=== PATIENT | male | born 1985 | race Caucasian/White ===

== ENCOUNTER → 2021-05-05 14:21 | Outpatient (BNVA) | payer BC, SELFPAY | PROVIDERS: PCP Nurse Practitioner Family; Referring Provider Nurse Practitioner Family; Visit Provider Surgery | DX: L02.01 Cutaneous abscess of face (principal); Z91.013 Allergy to seafood ==

== ENCOUNTER 2021-08-13 09:46 | Outpatient (REF) | payer BC, SELFPAY | END 2021-08-13 09:47 | disposition home or self-care (01) | LOC: HO.LNP 09:46 | PROVIDERS: PCP Nurse Practitioner Family; Referring Provider Nurse Practitioner Family; Visit Provider Surgery | DX: L02.01 Cutaneous abscess of face (principal) | CPT/HCPCS: 10060; 87071; 87077; 87186; 87205 ==

== ENCOUNTER → 2021-08-19 10:26 | Outpatient (BNVA) | payer BC, SELFPAY | PROVIDERS: PCP Nurse Practitioner Family; Referring Provider Nurse Practitioner Family; Visit Provider Surgery | DX: L02.01 Cutaneous abscess of face (principal) ==

== ENCOUNTER → 2021-10-13 12:58 | Outpatient (BNVA) | payer BC, SELFPAY | PROVIDERS: PCP Nurse Practitioner Family; Referring Provider Nurse Practitioner Family; Visit Provider Surgery ==

== ENCOUNTER 2021-11-19 06:23 | Outpatient (REF) | payer BC, SELFPAY ==
[2021-11-19 11:30] LABS: Appearance Urine CLEAR; Color Urine YELLOW; Glucose Urine UA NEG (NEG); Leukocyte Esterase Urine NEG (NEG); Nitrite Urine NEG (NEG); Urine Blood NEG (NEG); Urine Ketones NEG (NEG); Urine Protein NEG (NEG-TRACE)
[2021-11-19 11:43] LABS: Alanine Aminotransferase 75 U/L (0-40); Albumin Level 4.5 g/dL (3.5-5.0); Alkaline Phosphatase 48 U/L (39-117); Anion Gap 11 (12-20); Aspartate Amino Transferase 30 U/L (5-37); Bilirubin Total 0.8 mg/dL (0.0-1.0); Blood Urea Nitrogen 14 mg/dL (9-16); Calcium 9.8 mg/dL (8.4-10.2); Carbon Dioxide 27 mmol/L (22-29); Chloride 106 mmol/L (96-108); Cholesterol 246 mg/dL; Estimated Glomerular Filt Rate > 60; Glucose Fasting 99 mg/dL (60-99); HDL Cholesterol 34 mg/dL; LDL Cholesterol Calculated 174 mg/dl; Potassium 4.2 mmol/L (3.3-5.1); Sodium 140 mmol/L (135-145); Triglycerides 194 mg/dL
== END 2021-11-19 06:24 | disposition home or self-care (01) ==
LOC: HO.HMGCLDS 06:23
PROVIDERS: Visit Provider Nurse Practitioner Family
DX: Z00.00 Encounter for general adult medical examination without abnormal findings (principal)
CPT/HCPCS: 36415; 80053; 80061; 81003; 84443

== ENCOUNTER 2021-12-24 08:43 | Outpatient (REF) | payer BC, SELFPAY ==
--- NOTE | ~2021-12-24 | US_ITS ---
EXAMINATION: US ABDOMEN COMPLETE CLINICAL INFORMATION: Elevated liver enzymes. COMPARISON: None TECHNIQUE: Real-time imaging of the abdominal viscera. FINDINGS: PANCREAS: Normal. ABDOMINAL AORTA: The proximal, mid, and distal segments are normal in caliber. INFERIOR VENA CAVA: Visualized portions are normal. LIVER: There is a coarse inhomogeneous increased echogenicity throughout the liver consistent with primary hepatocellular disease. There are geographic areas of decreased density in the classic location near the gallbladder suggesting focal fatty sparing. The largest area is seen adjacent to the gallbladder. However, there is another area in the left lobe which measures 1.2 x 0.8 x 1.2 cm. This is not classic and a mass cannot be completely excluded in this area the liver. The liver contour is normal. There is no intrahepatic biliary duct dilatation seen. GALLBLADDER: Normal. The gallbladder is physiologically distended without evidence of stones, sludge, polyps, wall thickening or pericholecystic fluid. COMMON BILE DUCT: Normal in caliber measuring 0.6 cm in diameter. RIGHT KIDNEY: Normal. No hydronephrosis. No renal calculi or focal parenchymal lesions. The kidney measures 13.6 cm in maximum dimension. LEFT KIDNEY: There is mild dilatation of the infundibula and the renal pelvis which may represent mild hydronephrosis. No renal calculi or focal parenchymal lesions. The kidney measures 11.8 cm in maximum dimension. SPLEEN: Normal. The spleen measures 11.5 cm in maximum dimension. FREE FLUID: None. US/US abdomen complete IMPRESSION: 1. There is primary hepatocellular disease which may be due to hepatic steatosis. In addition, there are areas within superior classic for focal fatty sparing. However, there is one area in the left lobe of liver which does not appear classic and measures 1.2 x 0.8 x 1.2 cm. A mass cannot be completely excluded. Therefore, an MRI of the liver is recommended to exclude a liver mass. 2. There is mild left renal pelvic caliectasis. This could represent mild hydronephrosis of uncertain etiology. No stones are seen. Clinical correlation is recommended.
[2021-12-24 12:19] LABS: HBS Num1 3.28 mIU/mL (0-7.99); HBc Num1 0.07 S/CO (0.00-0.79); Hepatitis A Antibody IgM 0.15 Index (0-0.79); Hepatitis B Core Antibody Nonreactive (Nonreactive); ~HepC Num1 0.08 S/CO (0.00-0.79); ~Hepatitis A Antibody IgM Nonreactive (Nonreactive); ~Hepatitis B Surface Antibody NONREACTIVE (Nonreactive); ~Hepatitis C Antibody Nonreactive (Nonreactive)
[2021-12-24 12:26] LABS: Cholesterol 222 mg/dL; HDL Cholesterol 38 mg/dL; LDL Cholesterol Calculated 148 mg/dl; Triglycerides 184 mg/dL
[2021-12-24 12:31] LABS: Hepatitis B Surface Antigen Negative (Negative)
== END 2021-12-24 08:44 | disposition home or self-care (01) ==
LOC: HO.HMGCX 08:43
PROVIDERS: Visit Provider Nurse Practitioner Family
DX: R74.8 Abnormal levels of other serum enzymes (principal); E78.5 Hyperlipidemia, unspecified
CPT/HCPCS: 36415; 76700; 80061; 86704; 86706; 86709; 86803; 87340

== ENCOUNTER 2022-01-24 06:40 | Outpatient (REF) | payer BC, SELFPAY ==
[2022-01-24 11:38] LABS: Alanine Aminotransferase 41 U/L (0-40); Albumin Level 4.4 g/dL (3.5-5.0); Alkaline Phosphatase 43 U/L (39-117); Anion Gap 12 (12-20); Aspartate Amino Transferase 19 U/L (5-37); Bilirubin Total 0.7 mg/dL (0.0-1.0); Blood Urea Nitrogen 11 mg/dL (9-16); Calcium 9.6 mg/dL (8.4-10.2); Carbon Dioxide 24 mmol/L (22-29); Chloride 108 mmol/L (96-108); Cholesterol 218 mg/dL; Estimated Glomerular Filt Rate > 60; Glucose Fasting 94 mg/dL (60-99); HDL Cholesterol 36 mg/dL; LDL Cholesterol Calculated 156 mg/dl; Potassium 4.4 mmol/L (3.3-5.1); Sodium 140 mmol/L (135-145); Total Protein 6.6 g/dL (6.5-8.0); Triglycerides 132 mg/dL
== END 2022-01-24 06:41 | disposition home or self-care (01) ==
LOC: HO.HMGCLDS 06:40
PROVIDERS: Visit Provider Nurse Practitioner Family
DX: E78.5 Hyperlipidemia, unspecified (principal); I10 Essential (primary) hypertension
CPT/HCPCS: 36415; 80053; 80061

== ENCOUNTER 2022-01-26 13:14 | Outpatient (REF) | payer BC, SELFPAY ==
--- NOTE | ~2022-01-26 | MR_ITS ---
EXAMINATION: MR ABDOMEN WITHOUT AND WITH CONTRAST CLINICAL INFORMATION: Liver disease COMPARISON: Previous abdominal ultrasound December 2021 TECHNIQUE: MR abdomen was performed without and with use of 10 mL intravenous Gadavist gadolinium contrast. Postcontrast images are performed in multiphase dynamic sequences. Imaging was performed in 3 planes. FINDINGS: LUNG BASES: The visualized lung bases are unremarkable. LIVER, GALLBLADDER, AND BILIARY TREE: The liver is normal in size and contour. There is signal loss in the liver on out of phase sequences suggestive of fatty infiltration. No focal hepatic lesion or biliary ductal dilatation is present. The gallbladder is unremarkable with no evidence of gallbladder wall thickening, or obvious pericholecystic inflammatory changes. PANCREAS: Unremarkable. SPLEEN: Normal. ADRENAL GLANDS: Normal. KIDNEYS AND URETERS: The kidneys are normal in size, shape, and enhance symmetrically. No hydronephrosis. No perinephric stranding. GASTROINTESTINAL TRACT: No bowel obstruction. No ascites or fluid collection. ABDOMINAL WALL: No significant hernia is appreciated. LYMPH NODES: No lymphadenopathy. VASCULAR: Unremarkable. OSSEOUS STRUCTURES: Marrow signal normal. There is degenerative disc disease at L4-L5. MR/MR abdomen wo/w con IMPRESSION: Fatty infiltration of the liver. No focal liver lesion seen.
== END 2022-01-26 13:15 | disposition home or self-care (01) ==
LOC: HO.MRI 13:14
PROVIDERS: Visit Provider Nurse Practitioner Family
DX: K76.9 Liver disease, unspecified (principal)
CPT/HCPCS: 74183; A9585

== ENCOUNTER → 2022-03-18 13:30 | Outpatient (BNVA) | payer BC, SELFPAY | PROVIDERS: PCP Nurse Practitioner Family; Visit Provider Urology | DX: Z13.89 Encounter for screening for other disorder (principal) ==

== ENCOUNTER → 2022-04-11 12:39 | Outpatient (BNVA) | payer SELFPAY | PROVIDERS: PCP Nurse Practitioner Family; Visit Provider Physician Assistant Medical | DX: Z02.79 Encounter for issue of other medical certificate (principal) ==

== ENCOUNTER 2022-05-06 08:06 | Outpatient (REF) | payer BC, SELFPAY ==
[2022-05-06 08:33] LABS: COVID-19 Test Positive (Negative); IDNOW Serial# 16C4AD1C
== END 2022-05-06 08:07 | disposition home or self-care (01) ==
LOC: HO.LAB 08:06
PROVIDERS: Visit Provider Internal Medicine
DX: Z20.822 Contact with and (suspected) exposure to COVID-19 (principal)
CPT/HCPCS: 87635; C9803

== ENCOUNTER 2022-06-15 06:44 | Outpatient (REF) | payer BC, SELFPAY ==
[2022-06-15 11:32] LABS: Cholesterol 145 mg/dL; HDL Cholesterol 43 mg/dL; LDL Cholesterol Calculated 84 mg/dl; Triglycerides 92 mg/dL
== END 2022-06-15 06:45 | disposition home or self-care (01) ==
LOC: HO.HMGCLDS 06:44
PROVIDERS: PCP Nurse Practitioner Family; Visit Provider Nurse Practitioner Family
DX: E78.5 Hyperlipidemia, unspecified (principal)
CPT/HCPCS: 36415; 80061

== ENCOUNTER 2022-12-23 08:18 | Outpatient (REF) | payer BC, SELFPAY | END 2022-12-23 08:19 | disposition home or self-care (01) | LOC: HO.LNP 08:18 | PROVIDERS: PCP Nurse Practitioner Family; Visit Provider Surgery | DX: L02.01 Cutaneous abscess of face (principal); Z79.899 Other long term (current) drug therapy | CPT/HCPCS: 10060; 87070; 87077; 87186; 87205 ==

== ENCOUNTER → 2023-01-03 09:20 | Outpatient (BNVA) | payer BC, SELFPAY | PROVIDERS: PCP Nurse Practitioner Family; Visit Provider Surgery | DX: Z13.89 Encounter for screening for other disorder (principal) ==

== ENCOUNTER 2023-02-01 15:33 | Outpatient (REF) | payer BC, SELFPAY | END 2023-02-01 15:34 | disposition home or self-care (01) | LOC: HO.LAB 15:33 | PROVIDERS: Visit Provider Nurse Practitioner Family | DX: Z13.89 Encounter for screening for other disorder (principal) ==

== ENCOUNTER 2023-02-01 15:54 | Outpatient (REF) | payer BC, SELFPAY ==
[2023-02-01 16:18] LABS: MANUAL DIFF FLAG NO
[2023-02-01 16:32] LABS: Basophils Absolute Auto 0.1 X10*3/uL (0.0-0.2); Basophils Percent Auto 1.1 % (0-2); Eosinophils Absolute Auto 0.1 X10*3/uL (0.0-0.4); Eosinophils Percent Auto 1.3 % (0-4); Hematocrit 46.7 % (42.0-52.0); Hemoglobin 16.4 g/dl (14.0-18.0); Imm Gran Abs Auto 0.01 X10*3/uL (0.00-0.03); Imm Gran Pct Auto 0.2 % (0.0-0.4); Lymphocytes Absolute Auto 2.6 X10*3/uL (1.2-4.9); Lymphocytes Percent Auto 48.3 % (20-40); Mean Corpuscular HGB Conc 35.1 g/dl (31.0-36.0); Mean Corpuscular Hemoglobin 31.1 pg (27.0-33.0); Mean Corpuscular Volume 88.6 fL (80.0-98.0); Mean Platelet Volume 9.4 fL (9.4-12.4); Monocytes Absolute Auto 0.6 X10*3/uL (0.1-1.2); Monocytes Percent Auto 10.1 % (2-11); Neutrophils Absolute Auto 2.1 x10*3/uL (2.0-8.3); Platelet Count 252 X10*3/uL (160-400); Red Blood Count 5.27 X10*6/uL (4.60-5.80); Red Cell Distribution Width 12.7 % (11.0-16.0); White Blood Count 5.4 X10*3/uL (4.8-10.8)
[2023-02-01 16:51] LABS: Anion Gap 12 (12-20); Blood Urea Nitrogen 13 mg/dL (9-16); Calcium 9.9 mg/dL (8.4-10.2); Carbon Dioxide 28 mmol/L (22-29); Chloride 109 mmol/L (96-108); Estimated Glomerular Filt Rate > 60; Glucose Random 99 mg/dL (60-115); Potassium 4.6 mmol/L (3.3-5.1); Sodium 144 mmol/L (135-145)
[2023-02-01 16:58] LABS: Influenza A PCR NEGATIVE (Negative); Influenza B PCR NEGATIVE (Negative); Resp Syncy Virus RNA Qual PCR NEGATIVE (Negative); SARS COV2 PCR INHOUSE NEGATIVE (Negative)
== END 2023-02-01 15:55 | disposition home or self-care (01) ==
LOC: HO.LAB 15:54
PROVIDERS: PCP Nurse Practitioner Family; Visit Provider Nurse Practitioner Family
DX: Z20.822 Contact with and (suspected) exposure to COVID-19 (principal); R09.89 Other specified symptoms and signs involving the circulatory and respiratory systems; R42 Dizziness and giddiness
CPT/HCPCS: 0241U; 80048; 85025

== ENCOUNTER 2023-05-01 08:08 | Outpatient (AMB) | payer BC, SELFPAY ==
--- NOTE | 2023-05-01 08:46 | AM.OFFWIN_ITS ---
Intake Vital Signs 05/01/23 08:47 Height 5 ft 8 in BP 130/80 Blood Pressure Location Lt brachial Position Sitting Pulse 104 H Pulse Source Pulse Oximeter Temp 98.2 F Temp Source Oral Pulse Oximetry (%) 99 Oxygen Delivery Method Room Air Intake Visit Reasons: EP cough/congestion [phone] Intake Note: pt is here for cough and congestion 2x weeks Patient Tobacco Use Status: Never used Tobacco Allergies shellfish Allergy (Unknown, Uncoded 05/01/23 09:18) hives Medication List - Last Reconciled 05/01/23 by Adams Penn MD atorvastatin 10 mg PO BEDTIME 30 days chlorhexidine gluconate 4% (Hibiclens) 1 appl topical 2-3 times weekly.; Lather face and keep on skin 1-2 minutes before washing off. 2 weeks losartan 25 mg PO DAILY Do you need a note to return to daycare/school/sports/work: Yes HPI EP cough/congestion [phone] HPI Details Patient presents for a sick visit. Reporting symptoms of sinus congestion, sore throat and difficulty swallowing. Low-grade fever. No family member is sick. No recent travel. Patient reports symptoms of malaise and fatigue. [facility]LY [facility], [facility] Medical History Thrombosed external hemorrhoids Surgical History History of incision and drainage (12/23/22) Family History Paternal Grandmother Bladder cancer Social History Housing: House Alcohol intake: current Patient Tobacco Use Status: Never used Tobacco e-Cigarette/Vaping Use: Never Used Second Hand Smoke Exposure: No service: No Current occupational status: employed Current occupation: [employer] Current occupational exposures/hazards: Yes Cognitive needs: No Hearing needs: No Vision needs: No Physical Exam Vital Signs: Last Vital Signs Temp 98.2 F 05/01/23 08:47 Pulse 104 H 05/01/23 08:47 BP 130/80 05/01/23 08:47 Pulse Ox 99 05/01/23 08:47 Oxygen Delivery Method Room Air 05/01/23 08:47 Const General: cooperative and healthy appearing Nutritional Appearance: well nourished Orientation/consciousness: patient oriented x3 Limitations: no limitations HEENT Head: Yes normal to inspection Eyes General: appearance normal, both eyes and all related structures Neck Neck: Yes normal visual inspection Chest Chest palpation & inspection: normal palpation of entire chest wall Resp Effort & Inspection: normal respiratory effort Neuro General: patient oriented x3 Results AMB Rapid Strep AMB Rapid Strep Negative Last Edit by Jos Olivarez CMA on 05/01/23 09 :03 Results Reviewed Results Reviewed: Laboratory Last Values Strep Scn [facility] Negative 05/01/23 08:56 Assessment & Plan Assessment & Plan (1) Acute bronchitis: Code(s): J20.9 - Acute bronchitis, unspecified Plan: Antibiotics ordered. Increase fluid intake. Tylenol for aches and pains. If symptoms worsen, follow-up here for a recheck. Orders: Orders AMB Rapid Strep Screen Today Z13.9 - Encounter for screening, unspecified Coding Level of Care Code Est Pt Level 3 (96743) Diagnoses Acute bronchitis J20.9
[2023-05-01 08:47] VITALS: BP 130/80; PULSE 104; TEMP 36.8; O2SAT 99
== END 2023-05-01 09:31 | disposition home or self-care (01) ==
PROVIDERS: PCP Nurse Practitioner Family; Visit Provider Internal Medicine
DX: J20.9 Acute bronchitis, unspecified (principal); Z13.9 Encounter for screening, unspecified
CPT/HCPCS: 87880; 99213

== ENCOUNTER 2023-06-23 06:25 | Outpatient (REF) | payer BC, SELFPAY ==
[2023-06-23 11:11] LABS: MANUAL DIFF FLAG NO
[2023-06-23 11:31] LABS: Basophils Absolute Auto 0.1 X10*3/uL (0.0-0.2); Basophils Percent Auto 1.1 % (0-2); Eosinophils Absolute Auto 0.2 X10*3/uL (0.0-0.4); Hemoglobin 16.8 g/dl (14.0-18.0); Imm Gran Abs Auto 0.01 X10*3/uL (0.00-0.03); Imm Gran Pct Auto 0.2 % (0.0-0.4); Lymphocytes Absolute Auto 2.8 X10*3/uL (1.2-4.9); Lymphocytes Percent Auto 49.2 % (20-40); Mean Corpuscular Hemoglobin 31.5 pg (27.0-33.0); Mean Corpuscular Volume 89.9 fL (80.0-98.0); Monocytes Absolute Auto 0.5 X10*3/uL (0.1-1.2); Monocytes Percent Auto 8.9 % (2-11); Neutrophils Absolute Auto 2.1 x10*3/uL (2.0-8.3); Neutrophils Percent Auto 37.6 % (45-73); Platelet Count 274 X10*3/uL (160-400); Red Blood Count 5.34 X10*6/uL (4.60-5.80); Red Cell Distribution Width 13.2 % (11.0-16.0); White Blood Count 5.6 X10*3/uL (4.8-10.8)
[2023-06-23 11:53] LABS: Appearance Urine Clear; Color Urine Yellow; Glucose Urine UA Negative (Negative); Leukocyte Esterase Urine Negative (Negative); Nitrite Urine Negative (Negative); Specific Gravity - Urine 1.015 (1.005-1.025); Urine Blood Negative (Negative); Urine Ketones Negative (Negative); Urine Protein Negative (Neg-Trace)
[2023-06-23 12:37] LABS: Alanine Aminotransferase 38 U/L (0-40); Albumin Level 4.5 g/dL (3.5-5.0); Alkaline Phosphatase 49 U/L (39-117); Anion Gap 10 (12-20); Aspartate Amino Transferase 24 U/L (5-37); Blood Urea Nitrogen 15 mg/dL (9-16); Calcium 9.7 mg/dL (8.4-10.2); Carbon Dioxide 25 mmol/L (22-29); Chloride 108 mmol/L (96-108); Cholesterol 144 mg/dL (<200); Estimated Glomerular Filt Rate > 60; Glucose Fasting 92 mg/dL (60-99); HDL Cholesterol 38 mg/dL (>40); LDL Cholesterol Calculated 83 mg/dL (<100); Potassium 3.9 mmol/L (3.3-5.1); Sodium 139 mmol/L (135-145); TSH reflex Free T4 2.82 uIU/mL (0.32-4.0); Total Protein 6.9 g/dL (6.5-8.0); Triglycerides 116 mg/dL (<150)
== END 2023-06-23 06:26 | disposition home or self-care (01) ==
LOC: HO.HMGCLDS 06:25
PROVIDERS: PCP Nurse Practitioner Family; Visit Provider Nurse Practitioner Family
DX: Z00.00 Encounter for general adult medical examination without abnormal findings (principal); I10 Essential (primary) hypertension
CPT/HCPCS: 36415; 80053; 80061; 81003; 84443; 85025

== ENCOUNTER 2023-11-20 14:20 | Outpatient (AMB) | payer BC, SELFPAY ==
[2023-11-20 14:28] VITALS: BP 128/76; PULSE 108; O2SAT 98; BMI 34.6
--- NOTE | 2023-11-20 14:28 | MHC.PC.OV ---
Vital Signs 11/20/23 14:28 11/20/23 16:43 Height 5 ft 8 in Weight 227 lb 6 oz BMI 34.6 BP 128/76 Blood Pressure Location Lt brachial Position Sitting Pulse 108 H 88 Pulse Source Pulse Oximeter Pulse Oximetry (%) 98 Oxygen Delivery Method Room Air Intake Visit Reasons: Annual PE Intake Note: Pt is here for his Annual PE Allergies shellfish Allergy (Unknown, Uncoded 11/20/23 14:31) hives Medication List - Last Reconciled 11/20/23 by CHERYL Ferraro atorvastatin 10 mg PO BEDTIME losartan 25 mg PO DAILY Tobacco use date assessed: 11/20/23 Dental Screening Dental Screen Date: 11/20/23 Did you have a dental visit in the last 12 months?: Yes Did you have a dental problem in the last 6 months where you did not have access to dental care?: No Was dental information given to patient?: Patient has dentist HPI Annual PE HPI Details Pt is here for a PE. Will order labs. [facility] Medical History Thrombosed external hemorrhoids Surgical History History of incision and drainage (12/23/22) Family History Paternal Grandmother Bladder cancer Social History Housing: House Alcohol intake: current Patient Tobacco Use Status: Never used Tobacco e-Cigarette/Vaping Use: Never Used Second Hand Smoke Exposure: No service: No Current occupational status: employed Current occupation: [employer] Current occupational exposures/hazards: Yes Cognitive needs: No Hearing needs: No Vision needs: No Questionnaire PHQ-9 Over the last 2 weeks, how often have you been bothered by any of the following problems? 1. Little interest or pleasure in doing things: not at all 2. Feeling down, depressed, or hopeless: not at all 3. Trouble falling or staying asleep, or sleeping too much: not at all 4. Feeling tired or having little energy: not at all 5. Poor appetite or overeating: not at all 6. Feeling bad about yourself - or that you are a failure or have let yourself or your family down: not at all 7. Trouble concentrating on things, such as reading the newspaper or watching television: not at all 8. Moving or speaking so slowly that other people could have noticed. Or the opposite - being so fidgety or restless that you have been moving around a lot more than usual: not at all 9. Thoughts that you would be better off or of hurting yourself in some way: not at all Total score: 0 Depression Screening Interpretation: Negative Depression Screening Done: Yes 30086 - PHQ-9 Billing: Yes Source: Developed by Drs. Bo Burns, Valerie Julio, Luis Hood and colleagues, with an educational speedy from [employer]. Thrive Questionnaire Date Thrive assessed: 11/20/23 I am a: Patient What is your living situation today?: I have a steady place to live Within the past 12 months, did the food you bought not last and you didn't have the money to get more?: Never true Within the past 12 months, did you worry whether your food would run out before you got money to buy more?: Never true Do you have trouble paying for medicines?: No Do you have trouble getting transportation to medical appointments?: No Do you have trouble paying your heating and electricity bill?: No Do you have trouble taking care of your child, family member or friend?: No Do you have trouble with day-to-day activities such as bathing, preparing meals, shopping, managing finances, etc.?: No Are you currently unemployed and looking for a job?: No Are you interested in more education?: No Currently or been in a relationship where the following occur: no concerns reported THRIVE Score: 0 AUDIT C Alcohol Use Questionnaire (AUDIT-C) 1. How often do you have a drink containing alcohol?: Never Total Score: 0 VANDANA-7 AMB Questionnaire VANDANA-7 Date VANDANA - 7 assessed: 11/20/23 Feeling nervous, anxious, or on edge: 0 = Not at all Not being able to stop or control worryin = Not at all Worrying too much about different things: 0 = Not at all Trouble relaxin = Not at all Being so restless that it is hard to sit still: 0 = Not at all Becoming easily annoyed or irritable: 0 = Not at all Feeling afraid as if something awful might happen: 0 = Not at all Total VANDANA-7 score (0-4 normal; 5-9 mild; 10-14 moderate; 15-21 severe): 0 Source: Developed by Drs. Bo Burns, Valerie Julio, Luis Hood and colleagues, with an educational speedy from [employer]. Review of Systems Const Denies chills and Denies fever(s) Eyes Denies blurry vision ENT Denies vertigo, Denies dizziness and Denies sore throat Card Denies chest pain at rest, Denies chest pain with activity, Denies diaphoresis, Denies dyspnea and Denies dyspnea on exertion Resp Denies cough, Denies dyspnea, Denies dyspnea on exertion and Denies wheezing GI Denies abdominal pain, Denies melena, Denies hematochezia, Denies constipation, Denies diarrhea and Denies loose stools Denies hematuria Musc Denies numbness and Denies tingling Skin/Breast Denies lesions Neuro Denies vertigo, Denies dizziness, Denies numbness and Denies tingling Psych Denies anxiety, Denies depression, Denies homicidal ideation, Denies suicidal ideation and Denies other (substance abuse) Aller/Immun Denies wheezing Physical exam (Primary Care) Vital Signs: Last Vital Signs Pulse 108 H 11/20/23 14:28 BP 128/76 11/20/23 14:28 Pulse Ox 98 11/20/23 14:28 Oxygen Delivery Method Room Air 11/20/23 14:28 BMI result Body Mass Index 34.6 Tobacco/Smoking Status: Tobacco use Status Tobacco use date assessed 11/20/23 11/20/23 14:33 Patient Tobacco Use Status Never used Tobacco 11/20/23 14:33 e-Cigarette/Vaping Use Never Used 11/20/23 14:33 PHQ-9: PHQ-9 Score PHQ-9: Total score 0 11/20/23 14:52 Depression Screening Interpretation: Negative Thrive Assessment: Date of Thrive Assessment Date Thrive assessed 11/20/23 11/20/23 14:49 Currently or been in a relationship where the following occur: no concerns reported Const General: cooperative Nutritional Appearance: well nourished Orientation/consciousness: patient oriented x3 HENMT Head: Yes normal to inspection, Yes normocephalic and Yes atraumatic Ears: TM's normal bilaterally Eyes General: appearance normal, both eyes and all related structures Alignment and Position: alignment normal and position normal Neck Neck: Yes normal visual inspection and Yes no lymphadenopathy Thyroid: Thyroid normal Resp Effort & Inspection: normal respiratory effort Auscultation: clear to auscultation bilaterally Cardio Rate: regular rate Rhythm: regular rhythm Heart sounds: S1 normal heart sound present, S2 normal heart sound present and no murmurs GI Palpation (GI): Soft to palpation and nontender Auscultation: normal bowel sounds Male General Exam: Yes normal external exam Penis: normal penis Scrotum: scrotum normal, testes descended bilaterally and no inguinal hernias Testes: no testicular mass Skin Rashes: no rashes Neuro General: patient oriented x3, moves all extremities, no focal motor deficits and deep tendon reflexes 2+ bilaterally Romberg Test: Negative Psych Appearance: grossly normal Mental Status: mental status grossly normal Speech and movement: Normal speech and movement present Affect: normal affect Attitude: cooperative Thought process: Normal thought process present Thought content: Normal thought content present Insight: Good insight present (Psych) Judgement: Good judgement present (Psych) Assessment and Plan Assessment & Plan (1) Physical exam: Code(s): Z - Encounter for general adult medical examination without abnormal findings Plan: Labs ordered Plan The patient agreed to the use of a medical delivery driver for this encounter. Scribed for CHERYL Martinez by Maggie Cormier medical delivery driver, on 11/20/2023 at 14:50 EST. Orders: Orders Comprehensive [place]. Panel Fast Today Z00.00 - Encounter for general adult medical examination without abnormal findings TSH reflex Free T4 Today Z00.00 - Encounter for general adult medical examination without abnormal findings UA CC w/rflx Micro + Cult Today Z00. - Encounter for general adult medical examination without abnormal findings Lipid Panel Today Z00.00 - Encounter for general adult medical examination without abnormal findings Complete Blood Count Auto Diff Today Z00.00 - Encounter for general adult medical examination without abnormal findings Coding Level of Care Code Est Pt Prev Care 18-39y(74953) Diagnoses Physical exam Z00.00
[2023-11-20 16:43] VITALS: PULSE 88
== END 2023-11-20 15:20 | disposition home or self-care (01) ==
PROVIDERS: Visit Provider Nurse Practitioner Family
DX: Z00.00 Encounter for general adult medical examination without abnormal findings (principal)
CPT/HCPCS: 99395

== ENCOUNTER 2024-01-22 09:22 | Outpatient (AMB) | payer BC, SELFPAY ==
[2024-01-22 09:30] VITALS: BP 128/70; PULSE 69; O2SAT 98; BMI 33.6
--- NOTE | 2024-01-22 09:30 | MHC.PC.OV ---
Vital Signs 01/22/24 09:30 Height 5 ft 8 in Weight 221 lb BMI 33.6 BP 128/70 Blood Pressure Location Rt brachial Position Sitting Pulse 69 Pulse Source Pulse Oximeter Pulse Oximetry (%) 98 Oxygen Delivery Method Room Air Intake Visit Reasons: Rectal Bleeding/OK per Dr. Shaffer Intake Note: Pt is here for rectal bleeding on and off for a few months Allergies shellfish Allergy (Unknown, Uncoded 01/22/24 10:11) hives Medication List - Last Reconciled 01/22/24 by NICOLASA Valencia atorvastatin 10 mg PO BEDTIME losartan 25 mg PO DAILY Tobacco use date assessed: 01/22/24 Dental Screening Dental Screen Date: 01/22/24 Did you have a dental visit in the last 12 months?: Yes Did you have a dental problem in the last 6 months where you did not have access to dental care?: No Was dental information given to patient?: Patient has dentist HPI HPI Comments History of Present Illness Details Patient is a 38-year-old male in today for sick visit. Patient states that over the past couple months he has developed symptoms of gastrointestinal bloating, intermittent red blood in stool. Patient states he has not consumed alcohol in over 2 years. Limited use of NSAIDs. States that he drinks coffee regularly. Does have history of hemorrhoids. Reports that he has irregular bowel pattern sometimes has bowel movement 1 to 2 times a day, sometimes has bowel movement to 5 times, states that the stool consistency can vary between being loose and being hard. Patient denies abdominal pain, denies fever. FORMERLY [facility] Medical History Thrombosed external hemorrhoids Surgical History History of incision and drainage (12/23/22) Family History Paternal Grandmother Bladder cancer Social History Housing: House Alcohol intake: current Patient Tobacco Use Status: Never used Tobacco e-Cigarette/Vaping Use: Never Used Second Hand Smoke Exposure: No service: No Current occupational status: employed Current occupation: [employer] Current occupational exposures/hazards: Yes Cognitive needs: No Hearing needs: No Vision needs: No Questionnaire Thrive Questionnaire Date Thrive assessed: 11/20/23 AUDIT C Alcohol Use Questionnaire (AUDIT-C) 1. How often do you have a drink containing alcohol?: Never Total Score: 0 VANDANA-7 AMB Questionnaire VANDANA-7 Date VANDANA - 7 assessed: 11/20/23 Source: Developed by Drs. Bo Burns, Valerie Julio, Luis Hood and colleagues, with an educational speedy from [employer]. Review of Systems Const All systems reviewed & are unremarkable except as noted in HPI and below Physical exam (Primary Care) Vital Signs: Last Vital Signs Pulse 69 01/22/24 09:30 BP 128/70 01/22/24 09:30 Pulse Ox 98 01/22/24 09:30 Oxygen Delivery Method Room Air 01/22/24 09:30 Care Plan Goal for BP management: Vital signs reviewed stable. BMI result Body Mass Index 33.6 Tobacco/Smoking Status: Tobacco use Status Tobacco use date assessed 01/22/24 01/22/24 09:36 Patient Tobacco Use Status Never used Tobacco 01/22/24 09:36 e-Cigarette/Vaping Use Never Used 01/22/24 09:36 Thrive Assessment: Date of Thrive Assessment Date Thrive assessed 11/20/23 01/22/24 09:36 Const Other: Appearance: Alert.? Oriented X3.? No acute distress.? Head: Normocephalic, atraumatic, no step-offs or deformities ?Neck: Normal inspection.? Neck supple.? CVS: Normal heart rate and rhythm.? Pulses normal.? Respiratory: No respiratory distress.? Breath sounds normal.? Abdomen: Distended. Bowel sounds normal. No abominal pain. Skin: Skin warm and dry.? Normal skin color.? Normal skin turgor.? Neuro: Oriented X 3.? No motor deficit.? No sensory deficit. CN 2-12 intact Rectum: (With edge banding machine offbearer present): + hemorrhoids Assessment and Plan Assessment & Plan (1) Hemorrhoids: Comment: Patient has hemorrhoids on physical exam. Patient has history of hemorrhoids hemorrhoidectomy. Will refer to GI and General surgery if indicated Code(s): K64.9 - Unspecified hemorrhoids Qualifiers: Hemorrhoid type: unspecified Qualified Code(s): K64.9 - Unspecified hemorrhoids (2) Abdominal bloating: Comment: Will order labs, will also refer to GI. Patient has been educated to limit caffeine intake, limit NSAID use. Code(s): R14.0 - Abdominal distension (gaseous) Plan: Take your medications as prescribed. If you were prescribed antibiotics today, it is important that you take your medication to their entirety, do not skip any doses, do not finish them early. Follow-up with your primary care provider this week. Return to the emergency department with new or worsening symptoms. Such as fevers, chills, chest pain, shortness of breath, nausea, vomiting, dizziness, headache, vision changes, lethargy In case of emergency call 911 Orders: Orders Transglutaminase IgA Today R14.0 - Abdominal distension (gaseous) Erythrocyte Sedimentation Rate Today K92.1 - Melena Referrals Gastroenterology Referral K64.9 - Unspecified hemorrhoids, R14.0 - Abdominal distension (gaseous) Patient Instructions: Follow-up with PCP Coding Level of Care Code Est Pt Level 3 (05372) Diagnoses Hemorrhoids, unspecified hemorrhoid type K64.9 Hemorrhoid type: unspecified Abdominal bloating R14.0 Time Spent (min) 28
== END 2024-01-22 10:35 | disposition home or self-care (01) ==
PROVIDERS: PCP Nurse Practitioner Family; Visit Provider Nurse Practitioner Primary Care
DX: K64.9 Unspecified hemorrhoids (principal); R14.0 Abdominal distension (gaseous)
CPT/HCPCS: 99213

== ENCOUNTER 2024-01-22 10:28 | Outpatient (REF) | payer BC, SELFPAY ==
[2024-01-22 13:37] LABS: Appearance Urine Clear; Color Urine Yellow; Glucose Urine UA Negative (Negative); Leukocyte Esterase Urine Negative (Negative); Nitrite Urine Negative (Negative); PH 7.5 (5.0-9.0); Urine Blood Negative (Negative); Urine Ketones Negative (Negative); Urine Protein Negative (Neg-Trace)
[2024-01-22 13:55] LABS: MANUAL DIFF FLAG NO
[2024-01-22 14:03] LABS: Basophils Absolute Auto 0.1 X10*3/uL (0.0-0.2); Eosinophils Absolute Auto 0.2 X10*3/uL (0.0-0.4); Eosinophils Percent Auto 3.7 % (0-4); Hematocrit 43.3 % (42.0-52.0); Hemoglobin 14.9 g/dl (14.0-18.0); Imm Gran Abs Auto 0.01 X10*3/uL (0.00-0.03); Imm Gran Pct Auto 0.2 % (0.0-0.4); Lymphocytes Absolute Auto 2.2 X10*3/uL (1.2-4.9); Lymphocytes Percent Auto 41.7 % (20-40); Mean Corpuscular HGB Conc 34.4 g/dl (31.0-36.0); Mean Corpuscular Hemoglobin 30.8 pg (27.0-33.0); Mean Corpuscular Volume 89.5 fL (80.0-98.0); Mean Platelet Volume 9.6 fL (9.4-12.4); Monocytes Absolute Auto 0.4 X10*3/uL (0.1-1.2); Monocytes Percent Auto 6.7 % (2-11); Neutrophils Absolute Auto 2.4 x10*3/uL (2.0-8.3); Neutrophils Percent Auto 46.7 % (45-73); Platelet Count 295 X10*3/uL (160-400); Red Blood Count 4.84 X10*6/uL (4.60-5.80); Red Cell Distribution Width 13.1 % (11.0-16.0); White Blood Count 5.2 X10*3/uL (4.8-10.8)
[2024-01-22 14:41] LABS: Alanine Aminotransferase 18 U/L (0-40); Albumin Level 4.3 g/dL (3.5-5.0); Alkaline Phosphatase 57 U/L (39-117); Anion Gap 11 (12-20); Aspartate Amino Transferase 14 U/L (5-37); Bilirubin Total 0.4 mg/dL (0.0-1.0); Blood Urea Nitrogen 10 mg/dL (9-16); Calcium 9.3 mg/dL (8.4-10.2); Carbon Dioxide 27 mmol/L (22-29); Chloride 108 mmol/L (96-108); Cholesterol 139 mg/dL (<200); Estimated Glomerular Filt Rate > 60; Glucose Fasting 89 mg/dL (60-99); HDL Cholesterol 37 mg/dL (>40); LDL Cholesterol Calculated 85 mg/dL (<100); Potassium 4.1 mmol/L (3.3-5.1); Sodium 142 mmol/L (135-145); TSH reflex Free T4 1.42 uIU/mL (0.32-4.0); Total Protein 6.8 g/dL (6.5-8.0); Triglycerides 87 mg/dL (<150)
[2024-01-22 14:45] LABS: Erythrocyte Sedimentation Rate 2 MM/HR (0-15)
[2024-01-23 13:33] LABS: Transglutaminase IgA <1.0 U/mL
== END 2024-01-22 10:29 | disposition home or self-care (01) ==
LOC: HO.HMGCLDS 10:28
PROVIDERS: PCP Nurse Practitioner Family; Referring Provider Nurse Practitioner Primary Care; Visit Provider Nurse Practitioner Family
DX: Z00.00 Encounter for general adult medical examination without abnormal findings (principal); Z13.6 Encounter for screening for cardiovascular disorders; K92.1 Melena; R14.0 Abdominal distension (gaseous)
CPT/HCPCS: 36415; 80053; 80061; 81003; 84443; 85025; 85652; 86364

== ENCOUNTER 2024-03-01 08:53 | Outpatient (AMB) | payer BC, SELFPAY ==
--- NOTE | 2024-03-01 08:56 | MHC.OFFVIS ---
Vital Signs 03/01/24 08:58 Height 5 ft 8 in Weight 207 lb 3.752 oz BMI 31.5 BP 129/79 Blood Pressure Location Lt brachial Position Sitting Pulse 93 Intake Visit Reasons: rectal bleeding Intake Note: Álvaro presents in the office as a new patient rectal bleeding. CC: He states that he is having rectal bleeding. Only when he has a BM. Soft and hard stools, states that he has diarrhea but not so much constipation. Some days he goes once and other days he will go 7. He has cheat days on the weekends but throughout the week he ups his fiber. Slps Required: No Allergies shellfish Allergy (Unknown, Uncoded 03/01/24 08:59) hives HPI HPI rectal bleeding: Details: HPI 38 yr old m here for assessment of GI sx He has noted blood in stools for a long time usually wiping or splatter he has a lot of gas bloating no nausea or vomiting soemtimes he has to strain for stool sometimes he has tenesmus he feels the bowel habit has been erratic which is new no gerd or dysphagia no nsaid use uses THC on the weekends ROS: Constitutional : No Weight loss, No Fever, No Chills ENT/Mouth : No sore throat, No Rhinorrhea Eyes: No Swelling, No Redness Cardiovascular : No Chest Pain, No SOB, No Edema Respiratory : No Cough, No Sputum, No Wheezing Gastrointestinal : see HPI Genitourinar: NO Dysuria, No Urinary Frequency, No Hematuria, No Urgency Musculoskeletal : No joint pain, No Myalgias, No Joint Swelling Skin : No Skin Lesions, No rash Neuro : No Weakness, No Numbness, No Dizziness, No Headache Psych : No Anxiety/Panic, No Depression Heme/Lymph: No Bruising, No Lymphadenopathy Endocrine : No Polyuria, No Polydipsia All other systems reviewed and are negative. Medical History Thrombosed external hemorrhoids Surgical History History of incision and drainage (12/23/22) Family History Paternal Grandmother Bladder cancer Social History Housing: House Alcohol intake: current Patient Tobacco Use Status: Never used Tobacco e-Cigarette/Vaping Use: Never Used Second Hand Smoke Exposure: No service: No Current occupational status: employed Current occupation: [employer] EXAM: GENERAL: The patient is well developed and nontoxic. VITAL SIGNS:see workflow HEENT: Nonicteric sclerae, PERRLA, EOMI. Oropharynx clear. Moist mucous membranes. Conjunctivae appear well perfused. No thyroid mass. CHEST: Chest wall is nontender. HEART: Regular rate and rhythm without murmurs. LUNGS: Clear to auscultation bilaterally. ABDOMEN: Soft, positive bowel sounds, nontender, no organomegaly.no flank tenderness SKIN: No rash, no excessive bruising, petechiae, or purpura. NEUROLOGIC: Cranial nerves II-XII intact without motor/sensory deficit. Psych: normal affect A/P: 1/ Rectal bleeding and abn bowel habit--hgb has been nml ddx: proctitis, low lying rectal lesion, internal hemorrhoids PLAN: 1/ colonoscopy for assessment with suprep-- [facility], [facility] Medical History Thrombosed external hemorrhoids Surgical History History of incision and drainage (12/23/22) Family History Paternal Grandmother Bladder cancer Social History Housing: House Alcohol intake: current Patient Tobacco Use Status: Never used Tobacco e-Cigarette/Vaping Use: Never Used Second Hand Smoke Exposure: No service: No Current occupational status: employed Current occupation: [employer] Current occupational exposures/hazards: Yes Cognitive needs: No Hearing needs: No Vision needs: No Physical Exam Vital Signs: Last Vital Signs Pulse 93 03/01/24 08:58 BP 129/79 03/01/24 08:58 BMI result Body Mass Index 31.5 Assessment & Plan Assessment & Plan (1) Abnormal bowel habits: Code(s): R19.8 - Other specified symptoms and signs involving the digestive system and abdomen Category: Medical Plan: see above Medications: New sodium,potassium,mag sulfates 17.5-3.13-1.6 gram (Suprep Bowel Prep Kit) DILUTE; drink 1/2 at 6-8 pm and half at 11 PM- 1AM 354 mL 0RF Coding Level of Care Code New Pt Level 4 (37824) Diagnoses Abnormal bowel habits R19.8
[2024-03-01 08:58] VITALS: BP 129/79; PULSE 93; BMI 31.5
== END 2024-03-01 10:06 | disposition home or self-care (01) ==
PROVIDERS: PCP Nurse Practitioner Family; Visit Provider Internal Medicine Gastroenterology
DX: R19.8 Other specified symptoms and signs involving the digestive system and abdomen (principal)
CPT/HCPCS: 99204

== ENCOUNTER → 2024-03-01 08:53 | Outpatient (BNVA) | payer BC, SELFPAY | PROVIDERS: PCP Nurse Practitioner Family; Visit Provider Internal Medicine Gastroenterology ==

== ENCOUNTER 2024-03-15 10:33 | Day surgery (SDC) | payer BC, SELFPAY ==
--- NOTE | 2024-03-13 13:35 | HO.ANESPROP2 ---
Documented by User: Joanie Stephen NP 03/13/24 13:35 HPI - Anesthesia Eval Consult details Narrative: 38yo M for Colonoscopy [facility] Active Problems Active Problems: All Active Problems Abnormal bowel habits (Acute) Abdominal bloating (Acute) Hemorrhoids (Acute) Acute bronchitis (Acute) Dizziness (Acute) Vasectomy evaluation (Acute) Dyslipidemia (Acute) White coat syndrome with hypertension (Acute) HTN (hypertension) (Acute) Liver lesion (Acute) Caliectasis determined by ultrasound of kidney (Acute) Elevated liver enzymes (Acute) Dyslipidemia (Acute) Physical exam (Acute) Thrombosed external hemorrhoids (Acute) Abscess of face (Acute) Past Medical History Medical History (Updated 03/13/24 @ 13:35 by Joanie Stephen NP) Dyslipidemia HTN (hypertension) Thrombosed external hemorrhoids Family History Family History Paternal Grandmother Bladder cancer Surgical History Surgical History (Updated 03/15/24 @ 12:02 by Dalia Burnett RN) H/O wisdom tooth extraction History of incision and drainage (12/23/22) Social History Social History Housing: House Alcohol intake: current Patient Tobacco Use Status: Former Tobacco user e-Cigarette/Vaping Use: Never Used Second Hand Smoke Exposure: No Use of substances other than those prescribed or required for medical reasons: Yes Are you DNR?: No Advance Directives: No Advance Directives Information Provided: Yes service: No Current occupational status: employed Current occupation: [employer] Current occupational exposures/hazards: Yes Cognitive needs: No Hearing needs: No Vision needs: No Meds Allergies Allergy/AdvReac Type Severity Reaction Status Date / Time shellfish Allergy Unknown hives Uncoded 03/01/24 08:59 Assessment and Plan Assessment Anesthesia Assessment: Chart Reviewed Documented by User: Lesvia Nuñez MD 03/15/24 13:43 [facility] Past Medical History Medical History (Updated 03/13/24 @ 13:35 by Joanie Stephen NP) Dyslipidemia HTN (hypertension) Thrombosed external hemorrhoids Family History Family History Paternal Grandmother Bladder cancer Surgical History Surgical History (Updated 03/15/24 @ 12:02 by Dalia Burnett RN) H/O wisdom tooth extraction History of incision and drainage (12/23/22) History of Problems with Anesthesia: No Social History Social History Housing: House Alcohol intake: current Patient Tobacco Use Status: Former Tobacco user e-Cigarette/Vaping Use: Never Used Second Hand Smoke Exposure: No Use of substances other than those prescribed or required for medical reasons: Yes Are you DNR?: No Advance Directives: No Advance Directives Information Provided: Yes service: No Current occupational status: employed Current occupation: [employer] Current occupational exposures/hazards: Yes Cognitive needs: No Hearing needs: No Vision needs: No Meds Allergies Allergy/AdvReac Type Severity Reaction Status Date / Time shellfish Allergy Unknown hives Uncoded 03/01/24 08:59 Exam Airway Mallampati Class: III TM Dist: >3cm Neck ROM: Full Loose/Missing/Broken Teeth: No Heart: RRR Lungs: CTA Assessment and Plan Assessment Anesthesia Assessment: Anesthesia Plan Discussed Final Anesthetic Review History of Problems with Anesthesia: No NPO: Yes ASA Class: II Final Preanesthetic Review: Meds/Allgs Chart Reviewed, Consent Obtained/Reviewed and Anes Risks/Benef Reviewed Patient Risk: Low Procedure Risk: Low Anesthetic Plan Anesthetic Plan: MAC: Disposition: Standard PACU
[2024-03-15] VITALS (7 sets, daily range): BP systolic 114–130; BP diastolic 66–79; PULSE 49–75; RESP 14–18; TEMP 36.1–36.8; O2SAT 97–98; BMI 31.2
[2024-03-15] MEDS: Lactated Ringers 1,000 ML 100 ML IVCONT (12:24)
--- NOTE | 2024-03-15 13:31 | MHC.SHP ---
Pre-Procedural Eval Section A - 24 Hr Update-Section A only Date of Service: 03/15/24 The patient is an INPATIENT: No The patient has been examined within 24 hours of the surgical procedure. The History & Physical has been completed within 30 days and I have reviewed it.: Yes Section B - Complete if H&P > 30 days Chief Complaint: Other specified symptoms and signs involving the Allergies: Allergies Allergy/AdvReac Type Severity Reaction Status Date / Time shellfish Allergy Unknown hives Uncoded 03/01/24 08:59 Plan I have reviewed the history and physical and performed a pertinent physical examination on my patient. No changes have occurred unless specified. Time Spent With Patient Time: Total time managing care of this patient today ____ minutes.
--- NOTE | 2024-03-15 14:53 | HO.OPN-COLON ---
Colonoscopy Operative Note Operative Note Date of Service: 03/15/24 Narrative: Operative Information Procedure Description: Colonoscopy Indication: rectal bleeding Anesthesia: MAC COLONOSCOPY Instrument: Olympus variable stiffness pediatric scope 190L Colonoscopy Monitoring: Vital signs and clinical assessment, continuous EKG monitoring, Pulse oximetry, Carbon Dioxide monitoring and blood pressure monitoring were done throughout the procedure. Colon withdrawal time was 12 minutes. Procedure: The patient was placed in the left lateral decubitis position and pre-procedure medications were administered. After a digital rectal examination of the ano-rectum, the video colonoscope was inserted into the rectum and advanced through the colon to the cecum/TI. The colonoscope was slowly withdrawn in a retrograde panoramic fashion and the colon mucosa was carefully examined including a retroflexed view of the rectum. Findings and interventions are described below. Procedure Difficulty: easy Findings: Terminal Ileum-normal Cecum:normal Ascending Colon: normal Transverse Colon -normal Descending Colon:normal Sigmoid Colon: normal Rectum: Retroflexion with small internal hemorrhoids seen, grade I. From 16-21 cm from the anal verge there was a circumferential, irregular friable mass lesion, with some stricturing of the colonic lumen. Biopsies were taken, At 15 and 14 cm from anal verge there were x 3 semi pedunculated polyps measuring about 8-10 mm removed with cold snare Anorectum - normal Intervention: cold snare and cold forceps biopsy Colon preparation: [place] Bowel Preparation Scale Right colon; 2 Transverse colon: 2 Left colon; 2 (0 = Unprepared colon segment with mucosa not seen due to solid stool that cannot be cleared. 1 = Portion of mucosa of the colon segment seen, but other areas of the colon segment not well seen due to staining, residual stool and/or opaque liquid. 2 = Minor amount of residual staining, small fragments of stool and/or opaque liquid, but mucosa of colon segment seen well. 3 = Entire mucosa of colon segment seen well with no residual staining, small fragments of stool or opaque liquid) Impression and Post Procedure Diagnosis: colonic mass colon polyps internal hemorrhoids Plan: Low fiber diet leaflet Avoid straining at stool, epsom salts and sitz bath, anusol supps or cream Urgent surgical and oncology referral Above findings were reviewed with the patient and relevant handouts were provided if indicated.
== END 2024-03-15 16:45 | disposition home or self-care (01) ==
PROVIDERS: PCP Nurse Practitioner Family; Visit Provider Internal Medicine Gastroenterology
PROC: 0DJD8ZZ Inspection of Lower Intestinal Tract, Via Natural or Artificial Opening Endoscopic (ICD-10-PCS; CPT 45378; principal; 2024-03-15 14:20)
DX: C20 Malignant neoplasm of rectum (principal); D12.8 Benign neoplasm of rectum; K64.0 First degree hemorrhoids
CPT/HCPCS: 45385; 45380; 88305; 88341; 88342; J2250; J2704

== ENCOUNTER → 2024-03-15 10:33 | Outpatient (BNV) | payer BC, SELFPAY | PROVIDERS: PCP Nurse Practitioner Family; Visit Provider Internal Medicine Gastroenterology | DX: C20 Malignant neoplasm of rectum (principal); D12.8 Benign neoplasm of rectum; K62.5 Hemorrhage of anus and rectum; K64.0 First degree hemorrhoids | CPT/HCPCS: 45380; 45385 ==

== ENCOUNTER 2024-03-18 14:53 | Outpatient (REF) | payer BC, SELFPAY ==
[2024-03-18 18:09] LABS: Blood Urea Nitrogen 9 mg/dL (9-16); Estimated Glomerular Filt Rate > 60
== END 2024-03-18 14:54 | disposition home or self-care (01) ==
LOC: HO.LAB 14:53
PROVIDERS: PCP Nurse Practitioner Family; Referring Provider Internal Medicine Gastroenterology; Visit Provider Surgery
DX: K62.89 Other specified diseases of anus and rectum (principal)
CPT/HCPCS: 36415; 82378; 82565; 84520

== ENCOUNTER 2024-03-18 14:53 | Outpatient (AMB) | payer BC, SELFPAY ==
--- NOTE | 2024-03-18 14:56 | A.OFFVIS_ITS ---
Vital Signs 03/18/24 15:01 Weight 210 lb Intake Visit Reasons: Colonic mass Intake Note: This patient was referred by for an assessment for colonic mass. Patient c/o; reports no complaints at this time. 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 He has had some passage of blood per rectum on and off for about 6 months now. This initially seemed to be secondary to his hemorrhoids. However, this had persisted so he underwent a colonoscopy last week with Dr. Weston and there was note of a mass at level 60 cm going 5 cm proximally, friable and circumferentially. Biopsies of this are still pending but are very suspicious for a malignant neoplastic process as in adenocarcinoma. He was therefore referred to me. [facility] Medical History Dyslipidemia HTN (hypertension) Thrombosed external hemorrhoids Surgical History H/O wisdom tooth extraction History of incision and drainage (12/23/22) Family History Paternal Grandmother Bladder cancer Social History Housing: House Alcohol intake: current Patient Tobacco Use Status: Former Tobacco user e-Cigarette/Vaping Use: Never Used Second Hand Smoke Exposure: No service: No Current occupational status: employed Current occupation: [employer] Current occupational exposures/hazards: Yes Cognitive needs: No Hearing needs: No Vision needs: No Review of Systems Const Denies chills and Denies fever(s) Card Denies chest pain, Denies dyspnea and Denies dyspnea on exertion Resp Denies cough, Denies dyspnea and Denies dyspnea on exertion GI Reports hematochezia and Denies change in bowel habits Denies hematuria and Denies difficulty urinating Musc Denies back pain and Denies limited range of motion Neuro Denies focal weakness and Denies convulsions Psych Denies depression and Denies mood swings Physical Exam Const General: comfortable and no acute distress Orientation/consciousness: patient oriented x3 Neck Neck: Yes no lymphadenopathy Resp Auscultation: clear to auscultation bilaterally Cardio Rhythm: regular rhythm GI Palpation (GI): Soft to palpation, nontender and no guarding Neuro General: patient oriented x3 Assessment & Plan Assessment & Plan (1) Rectal mass: Code(s): K62.89 - Other specified diseases of anus and rectum Category: Medical Plan: Colonoscopy findings revealed this has at level 16-21 cm, friable, and highly suggestive of adenocarcinoma. His path report is still pending . There were also polyps distally in the rectum that were removed. I will order for a CAT scan to define this mass as well as check for any liver metastasis. I will await for the path report. I we will check on his CEA level as well. I did tell him that most likely, he will require an anterior resection. We can do this as a hand assisted laparoscopic procedure. I explained the technique of this procedure. I reviewed the risks including but not limited to bleeding, infections, bowel injury, staple line leak, injury to other organs including urinary tract, other bowel, erectile dysfunction, as well as the benefits and alternatives. Orders: Orders CT abdomen pelvis w IV con 03/21/24 K62.89 - Other specified diseases of anus and rectum Creatinine 03/18/24 K62.89 - Other specified diseases of anus and rectum Blood Urea Nitrogen 03/18/24 K62.89 - Other specified diseases of anus and rectum Carcinoembryonic Antigen 03/18/24 K62.89 - Other specified diseases of anus and rectum Coding Level of Care Code New Pt Level 4 (56782) Diagnoses Rectal mass K62.89
== END 2024-03-18 15:27 | disposition home or self-care (01) ==
PROVIDERS: PCP Nurse Practitioner Family; Referring Provider Internal Medicine Gastroenterology; Visit Provider Surgery
DX: K62.89 Other specified diseases of anus and rectum (principal)
CPT/HCPCS: 99214

== ENCOUNTER 2024-03-21 07:50 | Outpatient (REF) | payer BC, SELFPAY ==
--- NOTE | ~2024-03-21 | CT_ITS ---
EXAMINATION: CT ABDOMEN AND PELVIS WITH CONTRAST CLINICAL INFORMATION: Other specified diseases of anus and rectum COMPARISON: MRI abdomen 01/26/2022 TECHNIQUE: Multidetector volumetric images were obtained from the superior aspect of the liver through the pubic symphysis following administration of 60 mL of Omnipaque 350 intravenous contrast. Sagittal and coronal reformatted images were obtained on the technologist's workstation. Oral contrast: No This CT examination was performed using dose optimization techniques as appropriate, variously including the following: *Automated exposure control *Adjustment of mA and/or kV according to patient size (this includes techniques or standardized protocols for targeted exams where dose is matched to indication/reason for exam; i.e. extremities or head) *Use of iterative reconstruction technique DLP: 465 mGy-cm FINDINGS: LUNG BASES: The visualized lung bases are unremarkable. LIVER, GALLBLADDER, AND BILIARY TREE: The liver is normal in size, shape, and attenuation. No focal hepatic lesion or biliary ductal dilatation is present. The gallbladder is unremarkable with no evidence of radiopaque gallstones, gallbladder wall thickening, or obvious pericholecystic inflammatory changes. PANCREAS: Unremarkable. SPLEEN: Unremarkable. ADRENAL GLANDS: Unremarkable. KIDNEYS AND URETERS: The kidneys are normal in size, shape, and attenuation. No hydronephrosis, hydroureter, or calculi seen. No perinephric stranding. BLADDER: Unremarkable. GASTROINTESTINAL TRACT: There is mucosal thickening of the rectum. No definite inflammatory changes are seen surrounding the rectum. No perirectal abscess is detected. The small and large bowel are otherwise unremarkable. The appendix is unremarkable. ABDOMINAL WALL: No significant hernia is appreciated. LYMPH NODES: Normal. VASCULAR: Unremarkable. PELVIC VISCERA: There is mild BPH. Seminal vesicles appear normal. OSSEOUS STRUCTURES: Degenerative changes are present in the spine at L4-L5 CT/CT abdomen pelvis w IV con IMPRESSION: 1. Mucosal thickening of the rectum without perirectal inflammatory changes or abscess. 2. Incidental note made of mild BPH and degenerative changes L4-L5. Fleischner guidelines were followed.
[2024-03-21] MEDS: iohexoL 350 MG/ML 100 ML INFUS..BTL 85 ML IV (09:03)
== END 2024-03-21 07:51 | disposition home or self-care (01) ==
LOC: HO.CT 07:50
PROVIDERS: PCP Nurse Practitioner Family; Visit Provider Surgery
DX: K62.89 Other specified diseases of anus and rectum (principal)
CPT/HCPCS: 74177; Q9967

== ENCOUNTER 2024-03-28 09:08 | Day surgery (SDC) | payer BC, SELFPAY ==
--- NOTE | 2024-03-26 15:22 | P.CONAN_ITS ---
Documented by User: Joanie Stephen NP 03/26/24 15:23 HPI - Anesthesia Eval Consult details Narrative: 38yo M for Sigmoidoscopy Flexible s/p colonoscopy 02/2024 with MAC (colon mass) PMFSH Active Problems Active Problems: All Active Problems Rectal mass (Acute) Abnormal bowel habits (Acute) Abdominal bloating (Acute) Hemorrhoids (Acute) Acute bronchitis (Acute) Dizziness (Acute) Vasectomy evaluation (Acute) White coat syndrome with hypertension (Acute) Liver lesion (Acute) Caliectasis determined by ultrasound of kidney (Acute) Elevated liver enzymes (Acute) Dyslipidemia (Acute) Physical exam (Acute) Abscess of face (Acute) Thrombosed external hemorrhoids (Acute) Past Medical History Medical History Dyslipidemia HTN (hypertension) Thrombosed external hemorrhoids Family History Family History Paternal Grandmother Bladder cancer Surgical History Surgical History (Updated 03/28/24 @ 09:58 by Alysia Malone RN) Hx of colonoscopy H/O wisdom tooth extraction History of incision and drainage (12/23/22) History of Problems with Anesthesia: No Social History Social History Housing: House Alcohol intake: current Patient Tobacco Use Status: Former Tobacco user e-Cigarette/Vaping Use: Never Used Second Hand Smoke Exposure: No Substance Use Frequency: Daily Are you DNR?: No Advance Directives: No Advance Directives Information Provided: Yes Nutrition Risks: No Nutritional Risk service: No Current occupational status: employed Current occupation: [employer] Current occupational exposures/hazards: Yes Cognitive needs: No Hearing needs: No Vision needs: No Meds Allergies Allergy/AdvReac Type Severity Reaction Status Date / Time shellfish Allergy Unknown hives Uncoded 03/18/24 15:03 Exam Pertinent Lab Results Pertinent Lab Results: Laboratory Tests 01/22/24 03/18/24 10:32 15:56 WBC 5.2 Hgb 14.9 Hct 43.3 Plt Count 295 Sodium 142 Potassium 4.1 Chloride 108 Carbon Dioxide 27 BUN 9 Creatinine 0.83 Narrative Narrative: CT abdomen pelvis w IV con 03/2024 IMPRESSION: 1. Mucosal thickening of the rectum without perirectal inflammatory changes or abscess. 2. Incidental note made of mild BPH and degenerative changes L4-L5. Assessment and Plan Assessment Anesthesia Assessment: Chart Reviewed Final Anesthetic Review History of Problems with Anesthesia: No Documented by User: Charla Gill MD 03/28/24 10:24 [facility] Past Medical History Medical History Dyslipidemia HTN (hypertension) Thrombosed external hemorrhoids Family History Family History Paternal Grandmother Bladder cancer Family history of problems with anesthesia: No Surgical History Surgical History (Updated 03/28/24 @ 09:58 by Alysia Malone RN) Hx of colonoscopy H/O wisdom tooth extraction History of incision and drainage (12/23/22) Social History Social History Housing: House Alcohol intake: current Patient Tobacco Use Status: Former Tobacco user e-Cigarette/Vaping Use: Never Used Second Hand Smoke Exposure: No Substance Use Frequency: Daily Are you DNR?: No Advance Directives: No Advance Directives Information Provided: Yes Nutrition Risks: No Nutritional Risk service: No Current occupational status: employed Current occupation: [employer] Current occupational exposures/hazards: Yes Cognitive needs: No Hearing needs: No Vision needs: No Meds Allergies Allergy/AdvReac Type Severity Reaction Status Date / Time shellfish Allergy Unknown hives Uncoded 03/18/24 15:03 Exam Airway Mallampati Class: II TM Dist: >3cm Neck ROM: Full Assessment and Plan Assessment Anesthesia Assessment: Anesthesia Plan Discussed Final Anesthetic Review Family History of Problems with Anesthesia: No NPO: Yes ASA Class: II Final Preanesthetic Review: No Changes in Pt Med Stat, Meds/Allgs Chart Reviewed, Consent Obtained/Reviewed and Anes Risks/Benef Reviewed Patient Risk: Low Procedure Risk: Low Anesthetic Plan Anesthetic Plan: MAC: Disposition: Standard PACU
[2024-03-28] MEDS: Lactated Ringers 1,000 ML 100 ML IVCONT (09:41)
[2024-03-28 09:48] VITALS: BP 124/64; PULSE 75; RESP 18; TEMP 36.8; O2SAT 98
[2024-03-28 09:49] VITALS: BMI 31.9
--- NOTE | 2024-03-28 10:22 | PC.NURSE ---
Dr. Gill aware that patient has 3 earrings in that cannot be removed by hand. Waiver in chart. OK to proceed.
--- NOTE | 2024-03-28 11:21 | MHC.SHP ---
Pre-Procedural Eval Section A - 24 Hr Update-Section A only Date of Service: 03/28/24 The patient is an INPATIENT: No Changes since office visit: No Cold of Flu in the past 2 weeks, No New Medical Problems, No Changes in Medication and No Patient answered all questions The patient has been examined within 24 hours of the surgical procedure. The History & Physical has been completed within 30 days and I have reviewed it.: Yes Section B - Complete if H&P > 30 days Chief Complaint: Malignant neoplasm of colon, unspecified Allergies: Allergies Allergy/AdvReac Type Severity Reaction Status Date / Time shellfish Allergy Unknown hives Uncoded 03/18/24 15:03 Plan I have reviewed the history and physical and performed a pertinent physical examination on my patient. No changes have occurred unless specified. Time Spent With Patient Time: Total time managing care of this patient today ____ minutes.
--- NOTE | 2024-03-28 11:33 | W.PM.OPN ---
Operative Note Operative Note Date of Service: 03/28/24 Narrative: Preop diagnosis: Rectosigmoid cancer Postop diagnosis: The same, with lesions seen at about 16 cm extending for about 5 cm Procedure: Flexible sigmoidoscopy Surgeon: Cy Willis MD The patient is a 38-year-old male with a recently diagnosed cancer seen on colonoscopy. He had a CAT scan suggesting rectal thickening as well so I explained to him it may be best to do a flexible sigmoidoscopy to see exactly where the lesion is located and come up with a plan on management. He understood the technique of the procedure as well as the risks, benefits, and alternatives He was brought to the operating room. He was placed in left lateral decubitus position under monitored anesthesia care. A surgical time-out was done. A full digital exam was done and there were no palpable anal canal lesions. The tip of the Olympus colonoscopy was gently introduced through the anal orifice and advanced with insufflation. There was note of the lesion starting at about 16 cm. I was able to cancer scope past this and this extended to about level 21 cm. The lumen was patent. There was no evidence of obstruction at this time although the lumen was narrowed because of the circumferential nature of the lesion. There were no other lesions seen distally The scope was then withdrawn completely with desufflation. He tolerated procedure well. There were no immediate complications. I will see him in the office to discuss these findings and plan on the next step in his care.
[2024-03-28 11:35] VITALS: BP 107/51; PULSE 60; RESP 12; TEMP 36.8; O2SAT 99
[2024-03-28 11:50] VITALS: BP 106/54; PULSE 65; RESP 16; O2SAT 98
[2024-03-28 12:02] VITALS: BP 103/84; PULSE 64; RESP 20; TEMP 36.3; O2SAT 98
== END 2024-03-28 13:30 | disposition home or self-care (01) ==
PROVIDERS: PCP Nurse Practitioner Family; Visit Provider Surgery
PROC: 0DJD8ZZ Inspection of Lower Intestinal Tract, Via Natural or Artificial Opening Endoscopic (ICD-10-PCS; CPT 45330; principal; 2024-03-28 11:00)
DX: C19 Malignant neoplasm of rectosigmoid junction (principal); I10 Essential (primary) hypertension; Z79.899 Other long term (current) drug therapy
CPT/HCPCS: 45330; J2704

== ENCOUNTER → 2024-03-28 09:08 | Outpatient (BNV) | payer BC, SELFPAY | PROVIDERS: PCP Nurse Practitioner Family; Visit Provider Surgery | DX: C18.8 Malignant neoplasm of overlapping sites of colon (principal) | CPT/HCPCS: 45330 ==

== ENCOUNTER 2024-04-01 14:19 | Outpatient (AMB) | payer BC, SELFPAY ==
--- NOTE | 2024-04-01 14:22 | MHC.OFFVIS ---
Vital Signs 04/01/24 14:27 Height 5 ft 8 in Intake Visit Reasons: S/P flex sig., ?genetic testing? Intake Note: This patient presents for a post-op assessment status post Flexible sigmoidoscopy, possible genetic testing. Patient c/o; reports no complaints. Procedure: Flexible sigmoidoscopy 03/28/2024 Patent Attorney Required: No Accompanied by: Family/Other Allergies shellfish Allergy (Unknown, Uncoded 04/01/24 14:27) hives HPI HPI S/P flex sig., ?genetic testing?: Details: 38-year-old male with a recent diagnosis of colon cancer at the rectosigmoid. He has had some passage of blood per rectum on and off for about 6 months now. This initially seemed to be secondary to his hemorrhoids. However, this had persisted so he underwent a colonoscopy with Dr. Weston and there was note of a mass at level 16 cm going 5 cm proximally, friable and circumferential. 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 I had done his flexible sigmoidoscopy last week and the lesion was seen to be at the same level as above. His CAT scan does not suggest metastatic disease to the liver. He denies GI complaints except for occasional passage of blood per rectum. He denies abdominal pain. He has good bowel movements. [facility] Medical History (Updated 04/01/24 @ 14:50 by Cy Willis MD) Colon cancer Dyslipidemia HTN (hypertension) Thrombosed external hemorrhoids Surgical History History of flexible sigmoidoscopy Hx of colonoscopy H/O wisdom tooth extraction History of incision and drainage (12/23/22) Family History Paternal Grandmother Bladder cancer Social History Housing: House Alcohol intake: current Patient Tobacco Use Status: Former Tobacco user e-Cigarette/Vaping Use: Never Used Second Hand Smoke Exposure: No service: No Current occupational status: employed Current occupation: [employer] Current occupational exposures/hazards: Yes Cognitive needs: No Hearing needs: No Vision needs: No Review of Systems Const Denies chills and Denies fever(s) Card Denies chest pain, Denies dyspnea and Denies dyspnea on exertion Resp Denies cough, Denies dyspnea and Denies dyspnea on exertion GI Denies hematochezia and Denies change in bowel habits Denies hematuria and Denies difficulty urinating Musc Denies back pain and Denies limited range of motion Neuro Denies focal weakness and Denies convulsions Psych Denies depression and Denies mood swings Physical Exam Const General: comfortable and no acute distress Orientation/consciousness: patient oriented x3 Neck Neck: Yes no lymphadenopathy Resp Auscultation: clear to auscultation bilaterally Cardio Rhythm: regular rhythm GI Palpation (GI): Soft to palpation, nontender and no guarding Neuro General: patient oriented x3 Assessment & Plan Assessment & Plan (1) Colon cancer: Code(s): C18.9 - Malignant neoplasm of colon, unspecified Category: Medical Plan: Flexible sigmoidoscopy done last week shows that the lesion starts at somewhere around [address] to about 21 cm. The lumen is still patent and was able to allow the colonoscope I had a long discussion with him and his family about the technique of hand assisted laparoscopic anterior resection of this segment of the rectosigmoid. There has a possibility of converting to an open procedure. He understands that we are planning to do a diverting loop ileostomy. I explained the risks including but not limited to bleeding, infections, injury to other organs including bowel, urinary tract, blood vessels, staple line leak, blood clots, pneumonia, stoma complications, as well as the benefits and alternatives. He is to be seen by Dr. Medina In view of the lesion of the tumor, he will not require neoadjuvant treatment as this is on the rectosigmoid level. I had a long discussion with him and his family about what to expect postoperatively as well. Medications: New sodium,potassium,mag sulfates 17.5-3.13-1.6 gram (Suprep Bowel Prep Kit) DILUTE; drink full amount early evening before AND next morning at least 2 hr before procedure; follow w 960 mL water PO 354 mL 0RF Coding Level of Care Code Est Pt Level 4 (96862) Diagnoses Colon cancer C18.9
== END 2024-04-01 14:48 | disposition home or self-care (01) ==
PROVIDERS: PCP Nurse Practitioner Family; Visit Provider Surgery
DX: C18.9 Malignant neoplasm of colon, unspecified (principal)
CPT/HCPCS: 99214

== ENCOUNTER → 2024-04-01 14:19 | Outpatient (BNVA) | payer BC, SELFPAY | PROVIDERS: PCP Nurse Practitioner Family; Visit Provider Surgery ==

== ENCOUNTER → 2024-04-09 10:49 | Outpatient (BNV) | payer BC, SELFPAY | PROVIDERS: PCP Nurse Practitioner Family; Referring Provider Internal Medicine Gastroenterology; Visit Provider Internal Medicine Medical Oncology | DX: C18.9 Malignant neoplasm of colon, unspecified (principal) | CPT/HCPCS: 99204; 99213 ==

== ENCOUNTER 2024-04-15 11:46 | Outpatient (AMB) | payer BC, SELFPAY ==
--- NOTE | 2024-04-15 11:58 | A.OFFVIS_ITS ---
Vital Signs 04/15/24 11:59 Height 5 ft 8 in Weight 203 lb BMI 30.9 BP 121/59 L Blood Pressure Location Lt brachial Position Sitting Pulse 88 Intake Visit Reasons: S/P [place]; Dr. Weston Intake Note: Patient follow up for Colonoscopy results Patient denies any GI issues. 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 Weston: Details: 38 yr old m here for f/u He had colonoscopy with me and rectal lesion was noted He has seen Dr Willis and Dr Medina plan for surgery In next 1-2 weeks He denies abdominal pain, v occ cramps, no nausea or vomiting cut back on fiber CT - no mets were seen--rectal thickening EXAM: GENERAL: The patient is well developed and nontoxic. VITAL SIGNS:see workflow HEENT: Nonicteric sclerae, PERRLA, EOMI. Oropharynx clear. Moist mucous mem branes. Conjunctivae appear well perfused. No thyroid mass. CHEST: Chest wall is nontender. HEART: Regular rate and rhythm without murmurs. LUNGS: Clear to auscultation bilaterally. ABDOMEN: Soft, positive bowel sounds, nontender, no organomegaly.no flank tenderness SKIN: No rash, no excessive bruising, petechiae, or purpura. NEUROLOGIC: Cranial nerves II-XII intact without motor/sensory deficit. Psych: normal affect A/P: 1/ Rectal cancer PLAN: 1/ cont with low fiber diet 2/ f/u Dr Willis and Karina, 3/ rept colo for surveillance in about 1 yr or so [facility] Medical History (Updated 04/09/24 @ 12:30 by Gretchen Medina MD) Colon cancer Dyslipidemia HTN (hypertension) Thrombosed external hemorrhoids Surgical History History of flexible sigmoidoscopy Hx of colonoscopy H/O wisdom tooth extraction History of incision and drainage (12/23/22) Family History Paternal Grandmother Bladder cancer Maternal Grandmother Liver transplant disorder Social History Housing: House Alcohol intake: current Patient Tobacco Use Status: Former Tobacco user e-Cigarette/Vaping Use: Never Used Second Hand Smoke Exposure: No Substance Use Type: Marijuana service: No Current occupational status: employed Current occupation: [employer] Current occupational exposures/hazards: Yes Cognitive needs: No Hearing needs: No Vision needs: No Assessment & Plan Assessment & Plan (1) Rectal mass: Code(s): K62.89 - Other specified diseases of anus and rectum Category: Medical Plan: see above Coding Level of Care Code Est Pt Level 3 (77305) Diagnoses Rectal mass K62.89
[2024-04-15 11:59] VITALS: BP 121/59; PULSE 88; BMI 30.9
== END 2024-04-15 13:18 | disposition home or self-care (01) ==
PROVIDERS: PCP Nurse Practitioner Family; Visit Provider Internal Medicine Gastroenterology
DX: K62.89 Other specified diseases of anus and rectum (principal)
CPT/HCPCS: 99213

== ENCOUNTER → 2024-04-15 11:46 | Outpatient (BNVA) | payer BC, SELFPAY | PROVIDERS: PCP Nurse Practitioner Family; Visit Provider Internal Medicine Gastroenterology ==

== ENCOUNTER → 2024-04-22 11:08 | Outpatient (BNV) | payer BC, SELFPAY | PROVIDERS: Admitting Provider Surgery; PCP Nurse Practitioner Family; Visit Provider Internal Medicine Cardiovascular Disease | DX: Z01.810 Encounter for preprocedural cardiovascular examination (principal) | CPT/HCPCS: 93010 ==

== ENCOUNTER 2024-04-25 07:17 | Inpatient (IN) | payer BC, SELFPAY ==
--- NOTE | 2024-04-22 | ECG_ITS ---
Test Reason : pre op Blood Pressure : / mmHG Vent. Rate : 066 BPM Atrial Rate : 066 BPM P-R Int : 160 ms QRS Dur : 094 ms QT Int : 400 ms P-R-T Axes : 039 -10 028 degrees QTc Int : 419 ms Normal sinus rhythm with sinus arrhythmia Normal ECG No previous ECGs available Referred By: Joanie Stephen Electronically Signed By:Rafa Aceves
[2024-04-22 10:14] VITALS: BP 132/69; PULSE 72; RESP 18; O2SAT 99; BMI 31.8
--- NOTE | 2024-04-22 10:43 | HO.ANESPROP2 ---
Documented by User: Joanie Stephen NP 04/24/24 09:40 HPI - Anesthesia Eval Consult details Narrative: 38yo M for Hand Assisted Anterior Resection Laparoscopic,possible Open with Stoma, 04/25/24 s/p colo and flex sig 03/2024 with MAC No recent illness No CP/SOB with very active PMFSH Active Problems Active Problems: All Active Problems Rectal mass (Acute) Abnormal bowel habits (Acute) Abdominal bloating (Acute) Hemorrhoids (Acute) Acute bronchitis (Acute) Dizziness (Acute) Vasectomy evaluation (Acute) White coat syndrome with hypertension (Acute) Liver lesion (Acute) Caliectasis determined by ultrasound of kidney (Acute) Elevated liver enzymes (Acute) Dyslipidemia (Acute) Physical exam (Acute) Abscess of face (Acute) Colon cancer (Acute) Thrombosed external hemorrhoids (Acute) Past Medical History Medical History Back pain Colon cancer Dyslipidemia HTN (hypertension) Thrombosed external hemorrhoids Family History Family History Paternal Grandmother Bladder cancer Maternal Grandmother Liver transplant disorder Family history of problems with anesthesia: No Surgical History Surgical History History of flexible sigmoidoscopy Hx of colonoscopy H/O wisdom tooth extraction History of incision and drainage (12/23/22) History of Problems with Anesthesia: No Social History Social History Housing: House Are you a primary laboratory animal caretaker to a significant other at home: No Do you presently have visiting nurse or other home services: No Alcohol intake: current Alcohol intake frequency: does not drink Patient Tobacco Use Status: Former Tobacco user e-Cigarette/Vaping Use: Never Used Second Hand Smoke Exposure: No Use of substances other than those prescribed or required for medical reasons: Yes Substance Use Type: Marijuana Substance Use Frequency: Daily Have you been hit, kicked, punched, or otherwise hurt by someone within the past year? If so, by whom?: No Are you DNR?: No Advance Directives: No Advance Directives on File: No Recently lost weight without trying: No Nutrition Risks: No Nutritional Risk Poor oral hygiene: No service: No Current occupational status: employed Current occupation: [employer] Current occupational exposures/hazards: Yes Cognitive needs: No Hearing needs: No Vision needs: No Meds Allergies Allergy/AdvReac Type Severity Reaction Status Date / Time shellfish Allergy Mild hives Uncoded 04/25/24 06:13 Home Medications ?Medication ?Instructions ?Recorded ?Confirmed ?Last Taken ?Type losartan 25 mg tablet 25 mg PO BEDTIME 04/22/24 04/25/24 04/24/24 History Exam Height,Weight and Vital Signs: Height 5 ft 8 in Weight 94.801 kg Last Vital Signs Pulse 72 04/22/24 10:14 Resp 18 04/22/24 10:14 BP 132/69 04/22/24 10:14 Pulse Ox 99 04/22/24 10:14 O2 Del Method Room Air 04/22/24 10:14 Pertinent Lab Results Pertinent Lab Results: Laboratory Tests 04/09/24 11:47 WBC 5.7 Hgb 14.9 Hct 43.2 Plt Count 298 Sodium 144 Potassium 4.1 Chloride 110 H Carbon Dioxide 26 BUN 9 Creatinine 0.77 Narrative Narrative: EKG 04/2024 Vent. Rate : 066 BPM Atrial Rate : 066 BPM P-R Int : 160 ms QRS Dur : 094 ms QT Int : 400 ms P-R-T Axes : 039 -10 028 degrees QTc Int : 419 ms Normal sinus rhythm with sinus arrhythmia Normal ECG No previous ECGs available Airway Mallampati Class: I TM Dist: >3cm Neck ROM: Full Loose/Missing/Broken Teeth: No Heart: RRR Lungs: CTAB Assessment and Plan Assessment Anesthesia Assessment: Anesthesia Plan Discussed and PAT Visit Final Anesthetic Review Family History of Problems with Anesthesia: No History of Problems with Anesthesia: No Documented by User: Valorie Millan MD 04/25/24 08:26 [facility] Past Medical History Medical History Back pain Colon cancer Dyslipidemia HTN (hypertension) Thrombosed external hemorrhoids Family History Family History Paternal Grandmother Bladder cancer Maternal Grandmother Liver transplant disorder Surgical History Surgical History History of flexible sigmoidoscopy Hx of colonoscopy H/O wisdom tooth extraction History of incision and drainage (12/23/22) Social History Social History Housing: House Are you a primary laboratory animal caretaker to a significant other at home: No Do you presently have visiting nurse or other home services: No Alcohol intake: current Alcohol intake frequency: does not drink Patient Tobacco Use Status: Former Tobacco user e-Cigarette/Vaping Use: Never Used Second Hand Smoke Exposure: No Use of substances other than those prescribed or required for medical reasons: Yes Substance Use Type: Marijuana Substance Use Frequency: Daily Have you been hit, kicked, punched, or otherwise hurt by someone within the past year? If so, by whom?: No Are you DNR?: No Advance Directives: No Advance Directives on File: No Recently lost weight without trying: No Nutrition Risks: No Nutritional Risk Poor oral hygiene: No service: No Current occupational status: employed Current occupation: [employer] Current occupational exposures/hazards: Yes Cognitive needs: No Hearing needs: No Vision needs: No Meds Allergies Allergy/AdvReac Type Severity Reaction Status Date / Time shellfish Allergy Mild hives Uncoded 04/25/24 06:13 Home Medications ?Medication ?Instructions ?Recorded ?Confirmed ?Last Taken ?Type losartan 25 mg tablet 25 mg PO BEDTIME 04/22/24 04/25/24 04/24/24 History Assessment and Plan Assessment Anesthesia Assessment: Chart Reviewed Final Anesthetic Review NPO: Yes ASA Class: III Final Preanesthetic Review: No Changes in Pt Med Stat, Meds/Allgs Chart Reviewed, Consent Obtained/Reviewed and Anes Risks/Benef Reviewed Patient Risk: Low Procedure Risk: Intermediate Anesthetic Plan Anesthetic Plan: GA and Regional Block Disposition: Standard PACU
[2024-04-25] VITALS (13 sets, daily range): BP systolic 126–163; BP diastolic 63–83; PULSE 50–89; RESP 13–18; TEMP 36.5–36.9; O2SAT 97–100; BMI 30.3; BMI 31.2
[2024-04-25] MEDS: Lactated Ringers 1,000 ML 100 ML IVCONT ×3 (06:41→23:36)
--- NOTE | 2024-04-25 07:16 | MHC.SHP ---
Pre-Procedural Eval Section A - 24 Hr Update-Section A only Date of Service: 04/25/24 The patient is an INPATIENT: No Changes since office visit: No Cold of Flu in the past 2 weeks, No New Medical Problems, No Changes in Medication and No Patient answered all questions The patient has been examined within 24 hours of the surgical procedure. The History & Physical has been completed within 30 days and I have reviewed it.: Yes Section B - Complete if H&P > 30 days Chief Complaint: Malignant neoplasm of colon, unspecified Allergies: Allergies Allergy/AdvReac Type Severity Reaction Status Date / Time shellfish Allergy Mild hives Uncoded 04/25/24 06:13 Plan I have reviewed the history and physical and performed a pertinent physical examination on my patient. No changes have occurred unless specified. Time Spent With Patient Time: Total time managing care of this patient today ____ minutes.
--- NOTE | 2024-04-25 08:55 | PHA.MEDREC ---
Pharmacy Consult ? Medication Reconciliation Pharmacy has completed the medication reconciliation. RN completed med rec , pharmacy reviewed
--- NOTE | 2024-04-25 11:41 | P.OP_ITS ---
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 This seemed to be at the level of the rectosigmoid proximal rectum. I did not feel that he would benefit from adjuvant treatment as the tumor was proximal and I had recommended proceeding with anterior resection. He understood the technique of the planned procedure as well as the risks, benefits, and alternatives He was brought to the operating room. He was placed in modified lithotomy position under general anesthesia via endotracheal tube. A José Antonio block had been done by the anesthesiologist The abdomen and the perineum were prepped and draped in the usual sterile fashion. A surgical time-out was done. The patient received Cefotan 2 g IV preoperatively I made a short low midline incision using a blade 15. This carried down through the full-thickness of the skin subcutaneous fat down to the fascia. The fascia was incised. The peritoneum was entered. Through this incision t nhi Jos wound retractor was positioned. We then attached the port along with an insufflating port and insufflated the peritoneum to a pressure of 15 mm Hg. We used a 10 mm 30 degree scope and using this, we proceeded to insert a 5/12 mm port in the epigastric area. We removed the port from the GelPort and excision the laparoscope into the new epigastric port The patient was placed in a steep head-down position. The left hand was position into the GelPort and we reflected all the small bowel loops away from the pelvis. The rectum was therefore seen tumor in the proximal rectum and the rectosigmoid. I proceeded to insert another port in the right lower quadrant. I inserted the LigaSure through this right lower quadrant port. I then proceeded to mobilize the peritoneum of the side of the rectosigmoid using this LigaSure. I opened up the peritoneum along this lateral aspect and continued to dissect distally all the way to as closed with the palpable floor as possible . I extended the incision on the peritoneum proximally into the sigmoid. I then proceeded to do some lysis of adhesions on inherent areas in the sigmoid. I used the LigaSure to he is this adhesions. By doing so was able to visualize the left perirectal space and used the LigaSure again to open up the peritoneum. I used the LigaSure to divide the peritoneum along well-defined plane all the way to as close to the floor as we could. I proceeded to extend this incision on the left side as well into the area of the sigmoid and the left colon along the white line of Toldt. I had down this incision all the way just at the splenic flexure. I was able to separate the left colon the retroperitoneum and achieve good mobilization used a combination of blunt dissection with the by hand as well as by LigaSure. I extended this mobilization past the sigmoid and connected the sternal incision with the incision at the left perirectal area earlier. This point therefore we connected the peritoneal incision anteriorly on both sides. This allowed us to therefore pull the rectum more proximally. I could therefore feel good margins past the tumor distally in the very distal rectum. At this point I proceeded to then choose my point of dissection of the proximal sigmoid. I continued to incise the peritoneum on the right side of the mesentery of the sigmoid was able to visualize the inferior mesenteric artery. I chose a point of dissection proximal to this so we could do a high ligation of the CARMELO. I created a mesenteric window and used an Endo-NII 60 mm stapler through the right lower quadrant port. I divided this segment of what appeared to be the proximal sigmoid. It seemed that we still had adequate length for this staple line to reach down into the pelvis I then proceeded to divide the attached mesentery of this proximal sigmoid using the LigaSure along the previous peritoneal incision. I proceeded with this dissection until I reached the CARMELO. I defined the CARMELO with careful dissection using the LigaSure. Then proceeded to apply clips on the CARMELO with 2 clips applied proximally towards the side of the aorta. The CARMELO was transected between clips with Endo scissors. It appeared that we were also able to identify what may have been a branch of the IMV along the pedicle and this was dissected and clipped and divided in the same fashion Once the pedicle was divided, proceeded to continue dissection of the mesentery of the sigmoid until we reached the level of the sacral concavity. I used careful blunt dissection to define the mesorectal plane. We are able to then identify this and proceeded to continue to do combination of sharp dissection with the LigaSure as well as blunt dissection with the fingers to define the mesorectal plane distally around the rectum. We divided the lateral stalks on both sides. We continued to do careful dissection of the mesorectum and we preserved the mesorectal envelope as best as we can of the way to the distal rectum. Once we achieved good mobilization of the entire rectum past the level of the tumor, I proceeded to then create a mesenteric window. I initially used a radial stapler to attempt to divide the distal rectum but in view of the very thick mesorectum, we had no success with doing this so I used the Endo-NII 30 mm stapler and this was fired twice to bleeding transect the very distal rectum. I completed dissection of the entire rectum by dividing the remaining attached rectum and other bands The sigmoid and the rectum was therefore completely and was sent for immediate gross exam. I observed for hemostasis. It appeared that we had good hemostasis on the divided mesentery of the sigmoid as well as the planes of the mesorectum. The staple line on the distal stump appeared intact . I then proceeded to desufflate. I brought the proximal sigmoid stump into the field. I cleared the staple line of appendices epiploica. I applied the pursestring device and activated this. I transected excess tissue past the pursestring device using Metzenbaum scissors. The lumen was therefore opened up with the pursestring in place. I dilated this to 31 mm using the dilator without difficulty I therefore chose the 31 mm EEA stapler apparatus. I positioned in the anvil into the lumen and tighten the pursestring around this. I cleared more of appendices epiploica and fatty tissue around the pursestring in preparation for our end-to-end anastomosis. The 2nd hospital nursing assistant then proceeded to position the EEA apparatus through the anus into the distal staple line. The spike of the EEA apparatus was activated this was seen through the staple line. We attached the anvil into the spike and this was locked into place. Proceeded to then do the end-to-end anastomosis. The stapler was fired to create this and then the entire apparatus was pulled out. The anastomotic donuts were examined and this appeared to be circumferential and intact all around We insufflated the rectum with the anastomotic line immersed in irrigating fluid. There was no bubbling seen. We then proceeded to do an intraop flexible sigmoidoscopy. This was advanced past the staple line. The staple line was examined. There was a patent and appears to be viable and there was no leak within the pull of irrigation fluid Since the anastomosis appeared patent and viable, with good anastomotic donuts, I decided not to divert with an ileostomy. We examined the peritoneal cavity laparoscopically. I suctioned out the irrigant fluid . I then brought down the omentum to the pelvis. We desufflated and removed the this wound retractor . I closed the fascia of the right lower quadrant incision with a [id number] Polysorb 0 stitch We then proceeded to close the fascia of the midline incision. We had changed gloves at this point. I used a Maxon 1 stitch to close this fascia. I examined the fascial closure laparoscopically and this appeared to be intact without any bowel caught by the sutures. I therefore removed the epigastric port. I closed all incisions with skin jarrod after irrigation. Dressings were applied. The procedure was then completed The patient tolerated the procedure well. There were no immediate complications. Initial and final counts of sponges and instruments were correct. Estimated blood loss was about 150 cc The patient was extubated without difficulty and transferred to the recovery room with stable vital signs. Surgery was done with curative intent. Colon Resection Tumor location: Sigmoid colon (Up to the proximal rectum) Extent of lymphovascular resection Sigmoid colon: Distal sigmoid up to the mid rectum removed, including CARMELO as pedicle General Surg. - Synoptic Notes Colon Resection Tumor location: Sigmoid colon (Up to the proximal rectum) Extent of Lymphovascular Resection: Sigmoid colon: Distal sigmoid up to the mid rectum removed, including CARMELO as pedicle
--- NOTE | 2024-04-25 13:44 | PC.NURSE ---
Three dressings noted on ABD. Dressing at 7pm location with slight bloody drainage. Other two dressings CDI.
[2024-04-25] MEDS: Acetaminophen 1,000 MG/100 ML PIGGYBACK 400 MG IV ×2 (13:51→18:31)
--- NOTE | 2024-04-25 16:01 | PM.EVENT ---
Event Note Date of Service: 04/25/24 Event Note: Seen on afternoon rounds Status post anterior resection for cancer in the rectosigmoid Looks well Good pain control Good urine output Stable vital sign Continue pain management Incentive spirometry On clear liquids Await full return of GI function Family at bedside Time Spent With Patient Time: Total time managing care of this patient today ____ minutes.
[2024-04-25] MEDS: Losartan Potassium 25 MG TABLET PO (21:04)
[2024-04-25] MEDS: Atorvastatin Calcium 10 MG TABLET PO (21:07)
[2024-04-25] MEDS: oxyCODONE HCl Immed Release 5 MG TABLET 10 MG PO (21:13)
[2024-04-26] MEDS: Acetaminophen 1,000 MG/100 ML PIGGYBACK 400 MG IV ×4 (01:22→18:32)
[2024-04-26 03:26] VITALS: BP 106/57; PULSE 58; RESP 18; TEMP 36.8; O2SAT 98
[2024-04-26 06:12] LABS: MANUAL DIFF FLAG NO
[2024-04-26 06:20] LABS: Basophils Percent Auto 0.2 % (0-2); Hematocrit 40.2 % (42.0-52.0); Hemoglobin 13.8 g/dl (14.0-18.0); Imm Gran Abs Auto 0.06 X10*3/uL (0.00-0.03); Imm Gran Pct Auto 0.5 % (0.0-0.4); Lymphocytes Absolute Auto 1.5 X10*3/uL (1.2-4.9); Lymphocytes Percent Auto 12.5 % (20-40); Mean Corpuscular HGB Conc 34.3 g/dl (31.0-36.0); Mean Corpuscular Hemoglobin 30.5 pg (27.0-33.0); Mean Corpuscular Volume 88.7 fL (80.0-98.0); Mean Platelet Volume 9.7 fL (9.4-12.4); Monocytes Absolute Auto 1.2 X10*3/uL (0.1-1.2); Monocytes Percent Auto 10.7 % (2-11); Neutrophils Absolute Auto 8.9 x10*3/uL (2.0-8.3); Neutrophils Percent Auto 76.1 % (45-73); Platelet Count 302 X10*3/uL (160-400); Red Blood Count 4.53 X10*6/uL (4.60-5.80); Red Cell Distribution Width 12.5 % (11.0-16.0); White Blood Count 11.6 X10*3/uL (4.8-10.8)
[2024-04-26 06:41] LABS: Anion Gap 12 (12-20); Blood Urea Nitrogen 10 mg/dL (9-16); Calcium 9.1 mg/dL (8.4-10.2); Carbon Dioxide 21 mmol/L (22-29); Chloride 109 mmol/L (96-108); Creatinine Clr Calc Pharmacy 146.4; Estimated Glomerular Filt Rate > 60; Glucose Fasting 111 mg/dL (60-99); Potassium 4.1 mmol/L (3.3-5.1); Sodium 138 mmol/L (135-145)
[2024-04-26] MEDS: HYDROmorphone HCl 0.5 MG/0.5 ML SYRINGE IVPUSH ×2 (06:58→16:17)
[2024-04-26] MEDS: 0.9 % Sodium Chloride Flush 3 ML SYRINGE IVFLUSH (07:04)
[2024-04-26 07:21] VITALS: BP 132/79; PULSE 66; RESP 17; TEMP 36.4; O2SAT 95
--- NOTE | 2024-04-26 07:58 | PM.PNGS ---
Subjective Subjective Date of Service: 04/26/24 Interval history: Feels well this morning Good pain control Says he has passed flatus last Physical Exam Vital Signs: Vital Signs: Last Vital Signs Temp 97.5 F 04/26/24 07:21 Pulse 66 04/26/24 07:21 Resp 17 04/26/24 07:21 BP 132/79 04/26/24 07:21 Pulse Ox 95 04/26/24 07:21 O2 Del Method Room Air 04/26/24 07:21 O2 Flow Rate 2 04/25/24 12:58 BMI result Body Mass Index 31.2 Const: General: comfortable and no acute distress Resp: Effort & Inspection: normal respiratory effort Cardio: Rate: regular rate GI: Other: Dressings dry Palpation (GI): Soft to palpation and not firm Objective Data Active Medications Atorvastatin Calcium (Atorvastatin Calcium 10 Mg Tablet) 10 mg PO BEDTIME [facility] Last Admin: 04/25/24 21:07 Dose: 10 mg Documented By: GALINDO Calcium Carbonate (Calcium Carbonate 750 Mg Tab.Chew) 750 mg PO Q4H PRN PRN Reason: Heartburn Heparin Sodium (Porcine) (Heparin Sodium,Porcine 5,000 Unit/Ml Vial) 5,000 unit SUBCUT Q12H NOAH Hydromorphone HCl (Hydromorphone Hcl 0.5 Mg/0.5 Ml Syringe) 0.5 mg IVPUSH Q4H PRN; Protocol PRN Reason: Pain, Severe (Pain Scale 7-10) Last Admin: 04/26/24 06:58 Dose: 0.5 mg Documented By: NONA Lactated Ringer's (Lr) 1,000 mls @ 100 mls/hr IVCONT .Q10H NOAH Last Admin: 04/25/24 23:36 Dose: 100 mls/hr Documented By: GALINDO Acetaminophen (Ofirmev) 1,000 mg in 100 mls @ 400 mls/hr IV Q6H NOAH Last Infusion: 04/26/24 07:36 Dose: Infused Documented By: NONA Losartan Potassium (Losartan Potassium 25 Mg Tablet) 25 mg PO BEDTIME NOAH; Protocol Last Admin: 04/25/24 21:04 Dose: 25 mg Documented By: GALINDO Magnesium Hydroxide (Milk Of Magnesia 30 Ml Oral.Susp) 30 ml PO DAILY PRN PRN Reason: Constipation Melatonin (Melatonin 3 Mg Tablet) 6 mg PO BEDTIME PRN PRN Reason: Insomnia Ondansetron HCl (Ondansetron Hcl 4 Mg/2 Ml Vial) 4 mg IVPUSH Q6H PRN PRN Reason: Nausea Oxycodone HCl (Oxycodone Hcl Immed Release 5 Mg Tablet) 10 mg PO Q4H PRN PRN Reason: Pain, Moderate(Pain Scale 4-6) Last Admin: 04/25/24 21:13 Dose: 10 mg Documented By: GALINDO Sodium Chloride (0.9 % Sodium Chloride Flush 3 Ml Syringe) 3 ml IVFLUSH QSHIFT NOAH Last Admin: 04/26/24 07:04 Dose: 3 ml Documented By: NONA Labs 04/26/24 05:15 04/26/24 05:15 Labs: Laboratory Results - last 24 hr 04/26/24 05:15 MCV 88.7 MCH 30.5 MCHC 34.3 RDW 12.5 Plt Count 302 MPV 9.7 Immature Gran % (Auto) 0.5 H Neut % (Auto) 76.1 H Lymph % (Auto) 12.5 L Martin % (Auto) 10.7 Eos % (Auto) 0.0 Baso % (Auto) 0.2 Lymph # (Auto) 1.5 Martin # (Auto) 1.2 Eos # (Auto) 0.0 Baso # (Auto) 0.0 Abs Immat Gran (auto) 0.06 H Absolute Neuts (auto) 8.9 H Absolute Nucleated RBC 0.000 Nucleated RBC % (auto) 0.0 Anion Gap 12 Estim Creat Clear Calc 146.4 Estimated GFR > 60 Fasting Glucose 111 H Calcium 9.1 D Procedures Date of Service Date of Service: 04/26/24 Progress Note: A&P Assessment and plan (1) Colon cancer: Status: Acute Assessment and Plan: Status post anterior resection Has good pain control Looks well overall Ambulate today DC Mccann Incentive spirometry Labs okay Time Spent With Patient Time: Total time managing care of this patient today ____ minutes. Quality Stroke Does the patient have a stroke diagnosis?: No VTE Prior VTE?: No VTE Risk Level:: Medical - low VTE Device Contraindication: N/A - Device Ordered VTE Drug Contraindication: N/A - Med Ordered
--- NOTE | 2024-04-26 08:52 | MHC.CM.PN ---
CM MET WITH PT/SPOUSE AT BEDSIDE. PT IS INDEPENDENT/EMPLOYED F/T. +HCP ON FILE. PCP JENNIFER DESHPANDE. DP: HOME, NO SERVICES IS THE GOAL. SPOUSE WILL TRANSPORT HOME. CM WILL CONTINUE TO FOLLOW FOR ANY CHANGE TO DC PLAN/NEEDS.
--- NOTE | 2024-04-26 08:55 | PC.NURSE ---
Indwelling urinary catheter removed at 0845. Unit intact. Patient tolerated well. Carito-care provided. Patient and spouse educated on voiding trial- verbalized understanding. Due to void by 1445.
--- NOTE | 2024-04-26 09:03 | HO.POSTANES ---
Post Anesthesia Evaluation Post Anesthesia Evaluation Date of Service: 04/26/24 Vital Signs: Vital Signs Temp Pulse Resp BP Pulse Ox O2 Del Method 04/26/24 07:21 97.5 F 66 17 132/79 95 Room Air 04/26/24 03:26 98.3 F 58 18 106/57 L 98 Room Air 04/25/24 21:04 126/70 Anesthesia: General Endotracheal-GETA Mental Status: Awake Pain Control: Satisfactory Nausea/Vomiting: None Hydration: Adequate Anesthesia-Related Issues: No Anes. Related Issues
[2024-04-26] MEDS: Lactated Ringers 1,000 ML 80 ML IVCONT ×2 (09:44→21:58)
--- NOTE | 2024-04-26 10:17 | PC.NURSE ---
1000- patient's first void post indwelling catheter removal. Voided for 575mL of clear yellow urine with a PVR of 51mL.
[2024-04-26 10:29] VITALS: BMI 31.2
[2024-04-26] MEDS: oxyCODONE HCl Immed Release 5 MG TABLET 10 MG PO ×2 (10:56→21:03)
--- NOTE | 2024-04-26 11:30 | PC.NURSE ---
1040- Patient's second void post indwelling urinary catheter removal. Voided for 500mL of clear yellow urine. Bladder scanned for 6mL.
[2024-04-26 15:01] VITALS: BP 123/64; PULSE 53; RESP 18; TEMP 36.3; O2SAT 96
[2024-04-26] MEDS: Heparin Sodium,Porcine 5,000 UNIT/ML VIAL 5000 UNIT SUBCUT (18:32)
[2024-04-26 19:07] VITALS: BP 130/74; PULSE 64; RESP 18; TEMP 36.3; O2SAT 98
[2024-04-26] MEDS: Atorvastatin Calcium 10 MG TABLET PO (21:02)
[2024-04-26] MEDS: Losartan Potassium 25 MG TABLET PO (21:02)
[2024-04-27] MEDS: Acetaminophen 1,000 MG/100 ML PIGGYBACK 400 MG IV ×4 (01:01→19:35)
[2024-04-27] MEDS: 0.9 % Sodium Chloride Flush 3 ML SYRINGE IVFLUSH ×4 (01:07→19:40)
[2024-04-27 01:30] VITALS: RESP 16
[2024-04-27 03:20] VITALS: BP 139/69; PULSE 69; RESP 16; TEMP 36.6; O2SAT 97
[2024-04-27 07:10] VITALS: BP 141/75; PULSE 63; RESP 14; TEMP 36.6; O2SAT 98
[2024-04-27] MEDS: Heparin Sodium,Porcine 5,000 UNIT/ML VIAL 5000 UNIT SUBCUT ×2 (08:41→18:31)
[2024-04-27] MEDS: Lactated Ringers 1,000 ML 80 ML IVCONT (08:41)
--- NOTE | 2024-04-27 09:33 | P.PNGS_ITS ---
Subjective Subjective Date of Service: 04/27/24 Interval history: Has been passing good amounts of flatus this morning Also has had 2 BMs, brown nonbloody Feels well this morning Has been ambulating well Physical Exam 2 Vital Signs: Vital Signs: Last Vital Signs Temp 97.8 F 04/27/24 07:10 Pulse 63 04/27/24 07:10 Resp 14 04/27/24 07:10 BP 141/75 H 04/27/24 07:10 Pulse Ox 98 04/27/24 07:10 O2 Del Method Room Air 04/27/24 07:10 O2 Flow Rate 2 04/25/24 12:58 BMI result Body Mass Index 31.2 Const: General: comfortable and no acute distress Resp: Effort & Inspection: normal respiratory effort Cardio: Rate: regular rate GI: Other: All incisions clean and dry Inspection: No distended Palpation (GI): Soft to palpation, not firm and no guarding Objective Data Active Medications Atorvastatin Calcium (Atorvastatin Calcium 10 Mg Tablet) 10 mg PO BEDTIME [facility] Last Admin: 04/26/24 21:02 Dose: 10 mg Documented By: MINH Calcium Carbonate (Calcium Carbonate 750 Mg Tab.Chew) 750 mg PO Q4H PRN PRN Reason: Heartburn Heparin Sodium (Porcine) (Heparin Sodium,Porcine 5,000 Unit/Ml Vial) 5,000 unit SUBCUT Q12H [facility] Last Admin: 04/27/24 08:41 Dose: 5,000 unit Documented By: ARTHUR Hydromorphone HCl (Hydromorphone Hcl 0.5 Mg/0.5 Ml Syringe) 0.5 mg IVPUSH Q4H PRN; Protocol PRN Reason: Pain, Severe (Pain Scale 7-10) Last Admin: 04/26/24 16:17 Dose: 0.5 mg Documented By: NONA Lactated Ringer's (Lr) 1,000 mls @ 80 mls/hr IVCONT .[id number] [facility] Last Admin: 04/27/24 08:41 Dose: 80 mls/hr Documented By: ARTHUR Acetaminophen (Ofirmev) 1,000 mg in 100 mls @ 400 mls/hr IV Q6H [facility] Last Infusion: 04/27/24 09:06 Dose: Infused Documented By: ARTHUR Losartan Potassium (Losartan Potassium 25 Mg Tablet) 25 mg PO BEDTIME [facility]; Protocol Last Admin: 04/26/24 21:02 Dose: 25 mg Documented By: MINH Magnesium Hydroxide (Milk Of Magnesia 30 Ml Oral.Susp) 30 ml PO DAILY PRN PRN Reason: Constipation Melatonin (Melatonin 3 Mg Tablet) 6 mg PO BEDTIME PRN PRN Reason: Insomnia Ondansetron HCl (Ondansetron Hcl 4 Mg/2 Ml Vial) 4 mg IVPUSH Q6H PRN PRN Reason: Nausea Oxycodone HCl (Oxycodone Hcl Immed Release 5 Mg Tablet) 10 mg PO Q4H PRN PRN Reason: Pain, Moderate(Pain Scale 4-6) Last Admin: 04/26/24 21:03 Dose: 10 mg Documented By: MINH Sodium Chloride (0.9 % Sodium Chloride Flush 3 Ml Syringe) 3 ml IVFLUSH [facility] Last Admin: 04/27/24 08:44 Dose: 3 ml Documented By: BEIT Labs 04/26/24 05:15 04/26/24 05:15 Procedures Date of Service Date of Service: 04/27/24 Progress Note: A&P Assessment and plan (1) Colon cancer: Status: Acute Assessment and Plan: Status post anterior resection for cancer in the proximal rectum Good GI function Looks well clinically We will start on regular diet Continue ambulating Says he has not taken narcotics since last night Family at bedside Time Spent With Patient Time: Total time managing care of this patient today ____ minutes. Quality Stroke Does the patient have a stroke diagnosis?: No VTE Prior VTE?: No VTE Risk Level:: Medical - low VTE Device Contraindication: N/A - Device Ordered VTE Drug Contraindication: N/A - Med Ordered
[2024-04-27 15:08] VITALS: BP 139/70; PULSE 68; RESP 18; TEMP 36.7; O2SAT 95
[2024-04-27 19:23] VITALS: BP 141/84; PULSE 64; RESP 18; TEMP 36.8; O2SAT 97
[2024-04-27] MEDS: Losartan Potassium 25 MG TABLET PO (21:22)
[2024-04-27] MEDS: Atorvastatin Calcium 10 MG TABLET PO (21:34)
[2024-04-28] MEDS: Acetaminophen 1,000 MG/100 ML PIGGYBACK 400 MG IV ×2 (00:33→08:30)
[2024-04-28 03:02] VITALS: BP 143/83; PULSE 62; RESP 16; TEMP 36; O2SAT 97
[2024-04-28 06:57] VITALS: BP 132/82; PULSE 69; RESP 14; TEMP 36.6; O2SAT 96
[2024-04-28] MEDS: Heparin Sodium,Porcine 5,000 UNIT/ML VIAL 5000 UNIT SUBCUT (08:31)
[2024-04-28] MEDS: 0.9 % Sodium Chloride Flush 3 ML SYRINGE IVFLUSH (08:32)
--- NOTE | 2024-04-28 09:18 | PM.PNGS ---
Subjective Subjective Date of Service: 04/28/24 Interval history: feels well tolerating diet passing good flatus has had BMs ambulating well Physical Exam Vital Signs: Vital Signs: Last Vital Signs Temp 97.8 F 04/28/24 06:57 Pulse 69 04/28/24 06:57 Resp 14 04/28/24 06:57 BP 132/82 04/28/24 06:57 Pulse Ox 96 04/28/24 06:57 O2 Del Method Room Air 04/28/24 06:57 O2 Flow Rate 2 04/25/24 12:58 BMI result Body Mass Index 31.2 Const: General: comfortable and no acute distress Resp: Effort & Inspection: normal respiratory effort Cardio: Rate: regular rate GI: Other: incisions clean and dry Palpation (GI): Soft to palpation, not firm and no guarding Objective Data Active Medications Atorvastatin Calcium (Atorvastatin Calcium 10 Mg Tablet) 10 mg PO BEDTIME [facility] Last Admin: 04/27/24 21:34 Dose: 10 mg Documented By: GURVINDER Calcium Carbonate (Calcium Carbonate 750 Mg Tab.Chew) 750 mg PO Q4H PRN PRN Reason: Heartburn Heparin Sodium (Porcine) (Heparin Sodium,Porcine 5,000 Unit/Ml Vial) 5,000 unit SUBCUT Q12H [facility] Last Admin: 04/28/24 08:31 Dose: 5,000 unit Documented By: ARTHUR Hydromorphone HCl (Hydromorphone Hcl 0.5 Mg/0.5 Ml Syringe) 0.5 mg IVPUSH Q4H PRN; Protocol PRN Reason: Pain, Severe (Pain Scale 7-10) Last Admin: 04/26/24 16:17 Dose: 0.5 mg Documented By: NONA Acetaminophen (Ofirmev) 1,000 mg in 100 mls @ 400 mls/hr IV Q6H [facility] Last Admin: 04/28/24 08:30 Dose: 400 mls/hr Documented By: ARTHUR Losartan Potassium (Losartan Potassium 25 Mg Tablet) 25 mg PO BEDTIME [facility]; Protocol Last Admin: 04/27/24 21:22 Dose: 25 mg Documented By: GURVINDER Magnesium Hydroxide (Milk Of Magnesia 30 Ml Oral.Susp) 30 ml PO DAILY PRN PRN Reason: Constipation Melatonin (Melatonin 3 Mg Tablet) 6 mg PO BEDTIME PRN PRN Reason: Insomnia Ondansetron HCl (Ondansetron Hcl 4 Mg/2 Ml Vial) 4 mg IVPUSH Q6H PRN PRN Reason: Nausea Oxycodone HCl (Oxycodone Hcl Immed Release 5 Mg Tablet) 10 mg PO Q4H PRN PRN Reason: Pain, Moderate(Pain Scale 4-6) Last Admin: 04/26/24 21:03 Dose: 10 mg Documented By: MINH Sodium Chloride (0.9 % Sodium Chloride Flush 3 Ml Syringe) [facility] Last Admin: 04/28/24 08:32 Dose: 3 ml Documented By: BEIT Labs 04/26/24 05:15 04/26/24 05:15 Procedures Date of Service Date of Service: 04/28/24 Progress Note: A&P Assessment and plan (1) Colon cancer: Status: Acute Assessment and Plan: S/P anterior resection doing well good GI function good pain control he says he is ready to go home dc instructions reinforced with pt office ffup family at bedside Time Spent With Patient Time: Total time managing care of this patient today ____ minutes. Quality Stroke Does the patient have a stroke diagnosis?: No VTE Prior VTE?: No VTE Risk Level:: Medical - low VTE Device Contraindication: N/A - Device Ordered VTE Drug Contraindication: N/A - Med Ordered
--- NOTE | 2024-04-28 09:23 | MHC.CM.PN ---
Patient medically cleared for dc home self care. Family at bedside to transport.
--- NOTE | 2024-04-30 10:39 | P.DS_ITS ---
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 This seemed to be at the level of the rectosigmoid, proximal rectum. I did not feel that he would benefit from adjuvant treatment as the tumor was proximal and I had recommended proceeding with anterior resection. He understood the technique of the planned procedure as well as the risks, benefits, and alternatives and now presents for the procedure. HOSPITAL COURSE: On 04/25/24, hand assisted laparoscopic anterior resection of the rectosigmoid, with end-to-end anastomosis, intraop flexible sigmoidoscopy was performed by Dr. Willis without complication. The patient tolerated the procedure well and was admitted to the medical/surgical floor for observation. He had an uncomplicated recovery course. On POD #1, he felt well with good pain control. He was tolerating liquids. His strauss was removed. He was ambulated. The following day he began to pass flatus and had multiple formed bowel movements. He was advanced to a solid diet. On POD #3, the day of discharge, he was tolerating a solid diet without nausea or vomiting, had good GI function and had adequate pain control on oral analgesics. He was ambulating without difficulty. His abdomen was benign with clean incisions. He felt ready for discharge to home. He was discharged to home on 04/28/24 in stable condition. He is to follow up in the office in 2 weeks. Status at Discharge Functional status at discharge: independent ambulation Overall status at discharge: patient is progressing back to baseline Time Attestation Discharge Coordination Time (in mins): 40 Quality: Safe Use of Opioids Does Pt have an Active Cancer Diagnosis on the Problem List?: Yes Opioid Measure Date for [facility] Report: 03/31/24 Opioid Measure Time for [facility] Report: 10:39 Quality: Stroke Does the patient have a stroke diagnosis?: No Physical Exam Vital Signs: Vital Signs: Last Vital Signs Temp 97.8 F 04/28/24 06:57 Pulse 69 04/28/24 06:57 Resp 14 04/28/24 06:57 BP 132/82 04/28/24 06:57 Pulse Ox 96 04/28/24 06:57 O2 Del Method Room Air 04/28/24 06:57 O2 Flow Rate 2 04/25/24 12:58 BMI result Body Mass Index 31.2 DS: Data Data Completed and Pending Pending studies at discharge: Pending at discharge 04/25/24 10:14 Surgical [PTH] Stat Discharge Plan Discharge Anticipated Discharge Date/Time: 04/28/24 13:13 Patient Disposition: Home, Self-Care Discharge Diagnosis: s/p TERESA sigmoid resection Referrals: Kamaljit Luna FNP-MICHAEL [Primary Care Provider] - 1 Week Cy Willis MD [Physician] - 2 Weeks Discharge Medications: New oxycodone 5 mg tablet 5 mg PO Q4H PRN (Reason: pain) Qty: 26 0RF Rx Instructions: Partial Fill upon patient request. docusate sodium [Colace] 100 mg capsule 100 mg PO BID Qty: 60 2RF Continued atorvastatin 10 mg tablet 10 mg PO BEDTIME Qty: 90 1RF losartan 25 mg tablet 25 mg PO BEDTIME Discharge Orders: Discharge Order (Routine); Ordered 04/28/24 Ordered By: Cy Willis Diet: Advance to usual diet Activity on Discharge: No heavy lifting Stand Alone Forms: Patient Portal Discharge page Print Language: Romanian Activity Restrictions/Additional Instructions: If the incision area is tender, you may apply an ice pack for short intervals (No more than 20 minutes on, followed by at least 20 minutes off). Do not apply heat. Do not use creams, lotions, or topical antibiotics. These can cause infection or allergic reaction. Ok to shower. You have jarrod closing your incision and these will be removed approximately 10-14 days after surgery. NO HEAVY LIFTING (>10lbs) or strenuous activity. Follow up in office. ([phone]) Call Your Doctor If: -Your temperature exceeds 101.5? F -You experience excessive pain or swelling -You have an unexpected reaction to medication -You have excessive bleeding -You experience continued vomiting/nausea -Your incision begins to separate -Your incision shows signs of infection such as increased redness, swelling, excessive pain, drainage (light blood or clear fluid is normal) or heat Care Plan Goals: Return to baseline health and resume normal activities following recovery period. Health Concerns: colon CA Plan of Treatment: s/p TERESA sigmoid resection F/u in office in 2 weeks. Assessment: Doing well post op. Discharge Date/Time: 04/28/24 10:19
== END 2024-04-28 10:19 | disposition home or self-care (01) | DRG 231 ==
LOC: HO.SSSA 07:21 → HO.S3 11:29
PROVIDERS: Physician Assistant Surgical; Admitting Provider Surgery; PCP Nurse Practitioner Family; Visit Provider Surgery
PROC: 0DTE0ZZ Resection of Large Intestine, Open Approach (ICD-10-PCS; principal; 2024-04-25 07:30)
DX: C20 Malignant neoplasm of rectum (principal); E78.5 Hyperlipidemia, unspecified; I10 Essential (primary) hypertension; G89.18 Other acute postprocedural pain; Z87.891 Personal history of nicotine dependence; Z79.899 Other long term (current) drug therapy
CPT/HCPCS: 36415; 80048; 85025; 86850; 86900; 86901; 88304; 88305; 88307; 88309; 88329; 93005; C1758; J0131; J1100; J1170; J1644; J2250; J2405; J2704; J2795; J3010; J7120

== ENCOUNTER → 2024-04-25 07:17 | Outpatient (BNV) | payer BC, SELFPAY | PROVIDERS: Admitting Provider Surgery; PCP Nurse Practitioner Family; Visit Provider Surgery | DX: C18.9 Malignant neoplasm of colon, unspecified (principal) | CPT/HCPCS: 44204; 44213; 99024; 99499 ==

== ENCOUNTER 2024-04-30 13:58 | Outpatient (AMB) | payer BC, SELFPAY ==
--- NOTE | 2024-04-30 14:07 | A.OFFPC_ITS ---
Vital Signs 04/30/24 14:12 04/30/24 14:41 Height 5 ft 8 in Weight 198 lb BMI 30.1 BP 158/80 H 134/82 Blood Pressure Location Lt brachial Rt brachial Position Sitting Pulse 100 Pulse Source Pulse Oximeter Pulse Oximetry (%) 98 Oxygen Delivery Method Room Air Intake Visit Reasons: TCM Intake Note: Pt is here for TCM visit New Dx Colon CA Allergies shellfish Allergy (Mild, Uncoded 04/30/24 14:24) hives Medication List - Last Reconciled 04/30/24 by NICOLASA Valencia atorvastatin 10 mg PO BEDTIME docusate sodium (Colace) 100 mg PO BID losartan 25 mg PO BEDTIME oxycodone 5 mg PO Q4H PRN Tobacco use date assessed: 04/30/24 Dental Screening Dental Screen Date: 01/22/24 HPI TCM TCM Information Date of Discharge 04/28/24 Discharged From [facility] Interactive Contact Date (Reference documentation from this date) 04/29/24 HPI Comments History of Present Illness Details Patient is a 38-year-old male in for a TCM visit. He was diagnosed with colorectal cancer in the beginning of March, but 6 weeks prior to this appointment, and had colon surgery 5 days prior. Patient has establish care with Gastroenterology, General surgery, and Hematology-Oncology. He is slowly reintroducing solid food per Gastroenterology Patient is found to be slightly hypertensive at today's appointment. He is utilizing 25 mg a p.o. losartan. He denies any symptoms of chest pain, shortness a breath, headache, blurry vision. Will have patient come back to the office in 1 week for blood pressure recheck. [facility] Medical History (Updated 04/30/24 @ 14:49 by NICOLASA Valencia) HTN (hypertension) Back pain Colon cancer Dyslipidemia Thrombosed external hemorrhoids Surgical History History of flexible sigmoidoscopy Hx of colonoscopy H/O wisdom tooth extraction History of incision and drainage (12/23/22) Family History Paternal Grandmother Bladder cancer Maternal Grandmother Liver transplant disorder Social History Household Members: Family Housing: House Are you a primary career development coordinator/teacher to a significant other at home: No Do you presently have visiting nurse or other home services: No Alcohol intake: current Alcohol intake frequency: does not drink Patient Tobacco Use Status: Former Tobacco user e-Cigarette/Vaping Use: Never Used Second Hand Smoke Exposure: No Substance Use Type: Marijuana service: No Current occupational status: employed Current occupation: [employer] Current occupational exposures/hazards: Yes Cognitive needs: No Hearing needs: No Vision needs: No Questionnaire Thrive Questionnaire Date Thrive assessed: 04/26/24 I am a: Patient What is your living situation today?: I have a steady place to live Within the past 12 months, did the food you bought not last and you didn't have the money to get more?: I choose not to answer this question Within the past 12 months, did you worry whether your food would run out before you got money to buy more?: I choose not to answer this question Do you have trouble paying for medicines?: No Do you have trouble getting transportation to medical appointments?: No Do you have trouble paying your heating and electricity bill?: No Do you have trouble taking care of your child, family member or friend?: No Do you have trouble with day-to-day activities such as bathing, preparing meals, shopping, managing finances, etc.?: No Are you currently unemployed and looking for a job?: No Are you interested in more education?: No Please select the resources that you would like help with: Housing/Alf Currently or been in a relationship where the following occur: I choose not to answer THRIVE Score: 0 AUDIT C Alcohol Use Questionnaire (AUDIT-C) 1. How often do you have a drink containing alcohol?: Never Total Score: 0 VANDANA-7 AMB Questionnaire VANDANA-7 Date VANDANA - 7 assessed: 04/30/24 Feeling nervous, anxious, or on edge: 0 = Not at all Not being able to stop or control worryin = Not at all Worrying too much about different things: 0 = Not at all Trouble relaxin = Not at all Being so restless that it is hard to sit still: 0 = Not at all Becoming easily annoyed or irritable: 0 = Not at all Feeling afraid as if something awful might happen: 0 = Not at all Total VANDANA-7 score (0-4 normal; 5-9 mild; 10-14 moderate; 15-21 severe): 0 Source: Developed by Drs. Bo Burns, Valerie Julio, Luis Hood and colleagues, with an educational speedy from [employer]. VANDANA-7 Assessment Billing VANDANA-7 Assessment Tool: VANDANA-7 Assessment 75398 Review of Systems Const All systems reviewed & are unremarkable except as noted in HPI and below Denies chills and Denies fever(s) Eyes Denies blurry vision, Denies diplopia and Denies eye discharge ENT Denies dizziness Card Denies chest pain and Denies dyspnea Resp Denies dyspnea GI Reports dyspepsia and Denies vomiting Neuro Denies dizziness Physical exam (Primary Care) Care Plan Goal for BP management: Patient will have blood pressure recheck in office in 1 week. Tobacco/Smoking Status: Tobacco use Status Tobacco use date assessed 01/22/24 01/22/24 09:36 Patient Tobacco Use Status Former Tobacco user 04/28/24 09:20 e-Cigarette/Vaping Use Never Used 01/22/24 09:36 Thrive Assessment: Date of Thrive Assessment Date Thrive assessed 04/26/24 04/29/24 16:54 Currently or been in a relationship where the following occur: I choose not to answer Const Other: Appearance: Alert.? Oriented X3.? No acute distress.? Head: Normocephalic, atraumatic, no step-offs or deformities Eyes: PERRLA, EOMI. CVS: Normal heart rate and rhythm.? Pulses normal.? Respiratory: No respiratory distress.? Breath sounds normal.? Neuro: Oriented X 3.? No motor deficit.? No sensory deficit. CN 2-12 intact Results AMB Hemoglobin A1c AMB Hemoglobin A1c 5.3 % Last Edit by Álvaro Foster CMA on 04/30/24 14:48 Assessment and Plan Assessment & Plan (1) Colon cancer: Comment: Patient is being followed by Gastroenterology, General surgery, Hematology- Oncology. Code(s): C18.9 - Malignant neoplasm of colon, unspecified Qualifiers: Colon location: unspecified part of colon Qualified Code(s): C18.9 - Malignant neoplasm of colon, unspecified (2) HTN (hypertension): Comment: Slightly hypertensive today in office. Patient is not currently offering any symptoms of headache dizziness chest pain or shortness of breath. Patient will be instructed to take blood pressure measurements at home. He will also come back to the office in 1 week for blood pressure recheck with nurse navigator. Code(s): I10 - Essential (primary) hypertension Qualifiers: Hypertension type: unspecified Qualified Code(s): I10 - Essential (primary) hypertension Plan Patient returning the office in 1 week for blood pressure recheck. Orders: Orders AMB Hemoglobin A1c Today Z13.9 - Encounter for screening, unspecified Coding Level of Care Code TCM Mod MDM <= 14 Days Diagnoses Malignant neoplasm of colon, unspecified part of colon C18.9 Colon location: unspecified part of colon Hypertension, unspecified type I10 Hypertension type: unspecified Additional Codes VANDANA-7 Assessment Billing - VANDANA-7 Assessment Tool: VANDANA-7 Assessment [id number] ([id number]) Time Spent (min) 27
[2024-04-30 14:12] VITALS: BP 158/80; PULSE 100; O2SAT 98; BMI 30.1
[2024-04-30 14:41] VITALS: BP 134/82
== END 2024-04-30 15:08 | disposition home or self-care (01) ==
PROVIDERS: PCP Nurse Practitioner Family; Visit Provider Nurse Practitioner Primary Care
DX: C18.9 Malignant neoplasm of colon, unspecified (principal); I10 Essential (primary) hypertension; Z13.9 Encounter for screening, unspecified
CPT/HCPCS: 83036; 99495

== ENCOUNTER 2024-05-09 10:41 | Outpatient (AMB) | payer BC, SELFPAY ==
[2024-05-09 10:43] VITALS: BMI 30.7
--- NOTE | 2024-05-09 10:43 | MHC.OFFVIS ---
Vital Signs 05/09/24 10:43 Height 5 ft 8 in Weight 202 lb BMI 30.7 Intake Visit Reasons: S/P anterior resection, possible stoma Intake Note: This patient presents for a post-op assessment status post Hand assisted laparoscopic anterior resection of the rectosigmoid, mesorectal excision with end-to-end anastomosis, intraop flexible sigmoidoscopy. Patient c/o; reports no complaints pertaining to surgery. Sports Specialist Required: No Accompanied by: Other Relationship Allergies shellfish Allergy (Mild, Uncoded 05/09/24 10:51) hives HPI HPI S/P anterior resection, possible stoma: Details: He had undergone hand assisted laparoscopic anterior resection last 04/25/2024 for adenocarcinoma of the proximal rectum/rectosigmoid. He tolerated procedure well. He was discharged on postop day 3. He denies significant complaints. He has good oral intake. He has good bowel movements. [facility] Medical History (Updated 05/09/24 @ 10:46 by Cy Willis MD) Colon cancer HTN (hypertension) Back pain Dyslipidemia Thrombosed external hemorrhoids Surgical History (Updated 05/09/24 @ 10:52 by Heather Rodriguez [facility]) Hx of surgical procedure (~04/25/24) History of flexible sigmoidoscopy Hx of colonoscopy H/O wisdom tooth extraction History of incision and drainage (12/23/22) Family History Paternal Grandmother Bladder cancer Maternal Grandmother Liver transplant disorder Social History Household Members: Family Housing: House Are you a primary lpn care manager to a significant other at home: No Do you presently have visiting nurse or other home services: No Alcohol intake: current Alcohol intake frequency: does not drink Patient Tobacco Use Status: Former Tobacco user e-Cigarette/Vaping Use: Never Used Second Hand Smoke Exposure: No Substance Use Type: Marijuana service: No Current occupational status: employed Current occupation: [employer] Current occupational exposures/hazards: Yes Cognitive needs: No Hearing needs: No Vision needs: No Review of Systems Const Reports body aches, Denies chills and Denies fever(s) Card Denies chest pain Resp Denies cough GI Denies abdominal pain and Denies hematochezia Physical Exam Vital Signs: BMI result Body Mass Index 30.7 Const General: comfortable and no acute distress Resp Effort & Inspection: normal respiratory effort GI Other: Incisions well healed Palpation (GI): Soft to palpation, not firm and nontender Assessment & Plan Assessment & Plan (1) Colon cancer: Comment: Patient is being followed by Gastroenterology, General surgery, Hematology-Oncology. Code(s): C18.9 - Malignant neoplasm of colon, unspecified Category: Medical Qualifiers: Colon location: unspecified part of colon Qualified Code(s): C18.9 - Malignant neoplasm of colon, unspecified Plan: Status post anterior resection for cancer in the rectosigmoid. His path report shows a T3 N0 adenocarcinoma, moderately differentiated, with margins adequately negative. Twenty-six lymph nodes examined were negative for metastatic disease. He is doing well clinically. He is to follow up with Dr. Medina for possible adjuvant chemotherapy in view of the T3 lesion. I will see him in the office in about 6 months. All his skin jarrod were removed. Genetic testing was negative for mutations. He is to have surveillance CT scan in 6 months as well. Coding Level of Care Code Global (49769) Diagnoses Malignant neoplasm of colon, unspecified part of colon C18.9 Colon location: unspecified part of colon
== END 2024-05-09 11:09 | disposition home or self-care (01) ==
PROVIDERS: PCP Nurse Practitioner Family; Visit Provider Surgery
DX: C18.9 Malignant neoplasm of colon, unspecified (principal)
CPT/HCPCS: 99024

== ENCOUNTER → 2024-05-09 10:41 | Outpatient (BNVA) | payer BC, SELFPAY | PROVIDERS: PCP Nurse Practitioner Family; Visit Provider Surgery ==

== ENCOUNTER 2024-09-04 14:08 | Outpatient (REF) | payer BC, SELFPAY ==
--- NOTE | ~2024-09-04 | CT_ITS ---
EXAMINATION: CT ABDOMEN AND PELVIS WITH CONTRAST CLINICAL INFORMATION: Malignant neoplasm of the colon, unspecified. Six-month follow-up surveillance colon cancer. COMPARISON: CT dated March 21, 2024. TECHNIQUE: Multidetector volumetric images were obtained from the superior aspect of the liver through the pubic symphysis following administration 85 mL of Omnipaque 350 intravenous contrast. Sagittal and coronal reformatted images were obtained on the technologist's workstation. Oral contrast: No This CT examination was performed using dose optimization techniques as appropriate, variously including the following: *Automated exposure control *Adjustment of mA and/or kV according to patient size (this includes techniques or standardized protocols for targeted exams where dose is matched to indication/reason for exam; i.e. extremities or head) *Use of iterative reconstruction technique DLP: 485 mGy-cm FINDINGS: LUNG BASES: No gross pulmonary nodules or acute airspace disease in the included lungs. LIVER, GALLBLADDER, AND BILIARY TREE: Liver measures 16 cm. No focal mass. No intrahepatic or extrahepatic biliary ductal dilatation. The portal veins, hepatic veins and intrahepatic portion of the IVC are grossly patent. No pericholecystic fluid collection or gallbladder wall thickening. PANCREAS: No focal pancreatic mass. No peripancreatic fluid collection. No main pancreatic ductal dilatation. SPLEEN: 8 cm. No focal mass. ADRENAL GLANDS: No nodular lesions. KIDNEYS AND URETERS: Normal enhancement pattern of the renal parenchyma. No renal mass. No hydronephrosis. BLADDER: Fluid-filled. GASTROINTESTINAL TRACT: Sutures at the rectosigmoid colon without overt soft tissue mass or pericolonic edema pattern. Stool within the large intestine. No pneumatosis intestinalis. No ascites. No pneumoperitoneum. No peripheral enhancing fluid collection in the peritoneal cavity or perirectal. No intestinal obstruction pattern. ABDOMINAL WALL: Scarring from an infraumbilical midline incision without fluid collection. LYMPH NODES: Multiple, less than 10 mm lymph nodes, perirectal/pararectal compartment. Vascular clips in the inferior retroperitoneum below the bifurcation of the abdominal aorta. Nonspecific prominent less than 7 mm lymph nodes in the retroperitoneum/periaortic region. Prominent inguinal lymph nodes. The appendix is normal. VASCULAR: No aneurysm or dissection, abdominal aorta. PELVIC VISCERA: The prostate gland and seminal vesicles are not enlarged. OSSEOUS STRUCTURES: There is a 1.5 cm sclerotic/blastic abnormality in the posterior right iliac bone. Multilevel thoracolumbar spondylosis more conspicuous at L4-5 resulting in central spinal canal and bilateral neuroforamina stenosis. No acute fracture or listhesis. CT/CT abdomen pelvis w IV con IMPRESSION: Post treatment changes at the rectosigmoid colon without overt tumor recurrence. Nonspecific prominent perirectal/by rectal lymph nodes. Nonspecific blastic lesion, posterior right iliac bone. Continued surveillance. Fleischner guidelines were followed. Electronically signed by: Mihai Ramsey MD 09/06/2024 10:49 AM ANN BEE
[2024-09-04] MEDS: iohexoL 350 MG/ML 100 ML INFUS..BTL 85 ML IV (15:01)
== END 2024-09-04 14:09 | disposition home or self-care (01) ==
LOC: HO.CT 14:08
PROVIDERS: PCP Nurse Practitioner Family; Visit Provider Surgery
DX: C18.9 Malignant neoplasm of colon, unspecified (principal)
CPT/HCPCS: 74177; Q9967

== ENCOUNTER → 2024-09-04 14:11 | Outpatient (BNV) | payer BC, SELFPAY | PROVIDERS: PCP Nurse Practitioner Family; Visit Provider Radiology Diagnostic Radiology | DX: C18.9 Malignant neoplasm of colon, unspecified (principal) | CPT/HCPCS: 74177 ==

== ENCOUNTER 2024-10-31 09:18 | Outpatient (AMB) | payer BC, SELFPAY ==
[2024-10-31 09:24] VITALS: BP 128/85; PULSE 63; BMI 32.2
--- NOTE | 2024-10-31 09:24 | A.OFFVIS_ITS ---
Vital Signs 10/31/24 09:24 Height 5 ft 8 in Weight 212 lb BMI 32.2 BP 128/85 Blood Pressure Location Rt brachial Position Sitting Pulse 63 Intake Visit Reasons: 6 month S/P anterior resection, possible stoma Intake Note: This patient presents for six month follow-up for colon cancer. Pt c/o; no concerns, completed 4 rounds of oral chemotherapy. 09/04/2024: Abd/pelvis Ct 09/27/2024: Office visit Upcoming appointments: PET-Scan 11/12/24 @ 0930am Follow-up 11/21/2024 12/17/2024 04/04/2025 @ 900am-Colonoscopy Bull Driver Required: No Accompanied by: Family/Other Allergies shellfish Allergy (Mild, Uncoded 10/31/24 09:34) hives Medication List - Last Reconciled 10/31/24 by Cy Willis MD atorvastatin 10 mg PO BEDTIME capecitabine 2,500 mg (5 x 500 mg) PO BID losartan 25 mg PO DAILY ondansetron 8 mg PO Q8H HPI HPI 6 month S/P anterior resection, possible stoma: Details: He continues to do well after anterior resection for a distal sigmoid cancer last April,. He is back to his normal level of activities. He denies any problems with bowel movements or oral intake He has finished his course of capecitabine. His CEA level last August, was 4.8 but this went down to 4.1 last September. He is scheduled to undergo a PET scan this November. [facility] Medical History (Updated 10/31/24 @ 09:42 by Cy Willis MD) History of colon cancer Colon cancer HTN (hypertension) Back pain Dyslipidemia Thrombosed external hemorrhoids Surgical History Hx of surgical procedure (~04/25/24) History of flexible sigmoidoscopy Hx of colonoscopy H/O wisdom tooth extraction History of incision and drainage (12/23/22) Family History Paternal Grandmother Bladder cancer Maternal Grandmother Liver transplant disorder Social History Household Members: Family Housing: House Are you a primary urgent care technician to a significant other at home: No Do you presently have visiting nurse or other home services: No Alcohol intake: current Alcohol intake frequency: does not drink Patient Tobacco Use Status: Former Tobacco user e-Cigarette/Vaping Use: Never Used Second Hand Smoke Exposure: No Substance Use Type: Marijuana service: No Current occupational status: employed Current occupation: [employer] Current occupational exposures/hazards: Yes Cognitive needs: No Hearing needs: No Vision needs: No Review of Systems Const Denies chills and Denies fever(s) Card Denies chest pain, Denies dyspnea and Denies dyspnea on exertion Resp Denies cough, Denies dyspnea and Denies dyspnea on exertion GI Denies hematochezia and Denies change in bowel habits Denies hematuria and Denies difficulty urinating Musc Denies back pain and Denies limited range of motion Neuro Denies focal weakness and Denies convulsions Psych Denies depression and Denies mood swings Physical Exam Vital Signs: Last Vital Signs Pulse 63 10/31/24 09:24 BP 128/85 10/31/24 09:24 BMI result Body Mass Index 32.2 Const General: comfortable and no acute distress Resp Effort & Inspection: normal respiratory effort Cardio Rate: regular rate GI Other: No incisional hernia Palpation (GI): Soft to palpation, not firm, nontender and no guarding Assessment & Plan Assessment & Plan (1) History of colon cancer: Code(s): Z85.038 - Personal history of other malignant neoplasm of large intestine Category: Medical Plan: 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 He is doing very well. His CEA level was transiently high in 09/04/2024 but this dropped to 4.1 last September He is to undergo a PET scan next month. He has completed his course of capecitabine I will see him again in the office in about 6 months. He is also to continue to follow up with Dr. Medina. Coding Level of Care Code Est Pt Level 3 (85117) Diagnoses History of colon cancer Z85.038
--- OUTSIDE RECORDS SUMMARY | 2024-10-31 10:14 | XMS_ITS | Continuity of Care Document ---
Author Organization [facility]. If a dditional information is needed, contact Health Information Management at [phone] Address [address] [place] [address] Phone Care Team Providers Care Bolt Cutter Name Role Phone Unavailable Unavailable Unavailable Unavailable Unavailable Unavailable Unavailable Unavailable Unavailable Problems Cellulitis and abscess of fa ce Onset:07-Jun-2021 Kavita Olivier DO Allergies and Adverse Reactions shellfish derived(Allergy) Onset: 07-Jun-2021 Social History Smoking Status Never smoked tobacco Recorded: 07-Jun-2021
== END 2024-10-31 09:43 | disposition home or self-care (01) ==
PROVIDERS: PCP Nurse Practitioner Family; Visit Provider Surgery
DX: Z85.038 Personal history of other malignant neoplasm of large intestine (principal)
CPT/HCPCS: 99213

== ENCOUNTER 2024-11-12 08:58 | Outpatient (REF) | payer BC, SELFPAY ==
--- NOTE | ~2024-11-12 | PE_ITS ---
EXAMINATION: FLUORINE-18 FDG PET/CT SCAN CLINICAL INFORMATION: Colon cancer. Evaluate for metastatic disease. TECHNIQUE: 45 minutes minutes following the intravenous administration of 21.4 mCi of fluorine 18 FDG, images from the skull base to proximal thigh were obtained using a combined PET/CT scanner with CT scan based attenuation correction. No oral contrast was administered. No intravenous contrast was administered. Transverse, coronal, sagittal, and volume reconstruction projections were obtained. The patient's blood glucose as determined by a finger stick, was 91 mg/dL immediately prior to injection. The radiotracer was injected intravenously through left antecubital vein, without any complications. Total CT exam dose-length product 976 mGy-cm. * These CT images were obtained using dose optimization techniques as appropriate, variously including the following: Automated exposure control * Adjustment of mA and/or kV according to patient size (this includes techniques or standardized protocols for targeted exams where dose is matched to indication/reason for exam; i.e. extremities or head) * Use of iterative reconstruction technique COMPARISON: CT abdomen and pelvis with contrast. FINDINGS: HEAD AND NECK: No abnormal radiotracer uptake. No large intracranial hemorrhage, acute territorial infarct or significant shift of midline structures. CHEST: Ports and Devices: None Lungs: No abnormal radiotracer uptake. Pleura: No significant pleural effusion. Lymph Nodes: No tracer-avid mediastinal, hilar or internal mammary or axillary lymphadenopathy. Mediastinum: There is no significant pericardial effusion/thickening. Breasts/Chest Wall: No abnormal radiotracer uptake. ABDOMEN/PELVIS: Liver/Biliary System: No focal tracer-avid liver lesion. The gallbladder appears unremarkable. Pancreas: Normal. Spleen: No abnormal radiotracer uptake. No evidence of splenomegaly. Adrenal Glands: No abnormal radiotracer uptake. Kidneys: No hydronephrosis, hydroureter or renal calculi bilaterally. Bowel: Postsurgical changes are seen in the pelvis following colectomy and anastomosis in the pelvis. No abnormal FDG activity. No abnormal mass or recurrence or adenopathy seen in the pelvis. Lymph Nodes: No tracer avid retroperitoneal, mesenteric or pelvic and/or groin lymphadenopathy. Pelvic Organs: The urinary bladder is underdistended. MUSCULOSKELETAL: No abnormal metabolic activity seen VASCULAR: Unremarkable THE SITE(S) OF MOST INTENSE FDG AVIDITY IS MYOCARDIUM AND BLADDER. PET/PET CT fusion skull to thigh IMPRESSION: No abnormal metabolic activity seen on the whole body PET imaging. Electronically signed by: Dilip Guevara MD 11/12/2024 01:00 PM ANN
--- OUTSIDE RECORDS SUMMARY | 2024-11-12 09:20 | XMS_ITS | Continuity of Care Document ---
Author Organization [facility]. If a dditional information is needed, contact Health Information Management at [phone] Address [address] [place] [address] Phone Care Team Providers Care Instructional Systems Designer Name Role Phone Unavailable Unavailable Unavailable Unavailable Unavailable Unavailable Unavailable Unavailable Unavailable Problems Cellulitis and abscess of fa ce Onset:07-Jun-2021 Kavita Olivier DO Allergies and Adverse Reactions shellfish derived(Allergy) Onset: 07-Jun-2021 Social History Smoking Status Never smoked tobacco Recorded: 07-Jun-2021
== END 2024-11-12 08:59 | disposition home or self-care (01) ==
LOC: HO.PET 08:58
PROVIDERS: PCP Nurse Practitioner Family; Visit Provider Internal Medicine Medical Oncology
DX: Z13.89 Encounter for screening for other disorder (principal)

== ENCOUNTER 2024-12-17 07:49 | Outpatient (AMB) | payer BC, SELFPAY ==
[2024-12-17 07:52] VITALS: BP 126/66; PULSE 83; RESP 16; TEMP 36.7; O2SAT 98; BMI 31.2
--- NOTE | 2024-12-17 07:52 | MHC.PC.OV ---
Vital Signs 12/17/24 07:52 Height 5 ft 8 in Weight 205 lb BMI 31.2 BP 126/66 Blood Pressure Location Rt brachial Position Sitting Respiration 16 Pulse 83 Pulse Source Pulse Oximeter Temp 98.0 F Temp Source Oral Pulse Oximetry (%) 98 Oxygen Delivery Method Room Air Intake Visit Reasons: ANNUAL PE Allergies shellfish Allergy (Mild, Uncoded 12/17/24 08:28) hives Medication List - Last Reconciled 12/17/24 by VALARIE Ferraro atorvastatin 10 mg PO BEDTIME losartan 25 mg PO DAILY Tobacco use date assessed: 12/17/24 Dental Screening Dental Screen Date: 12/17/24 Did you have a dental visit in the last 12 months?: Yes Did you have a dental problem in the last 6 months where you did not have access to dental care?: No Was dental information given to patient?: Patient has dentist HPI ANNUAL PE HPI Details History of Present Illness The patient is a 39-year-old male presenting for a routine physical examination and follow-up care after undergoing a sigmoid resection last year in April 2024 for adenocarcinoma of the colon. Since his surgery, he has been closely monitored by his surgical and oncology teams through routine imaging and laboratory evaluations. Postoperative recovery has been uneventful, with no complications noted. He denies any common post-surgery symptoms such as chills, nausea, or bowel irregularities and reports a positive emotional and psychological disposition. 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 Review of Systems - General: Denies fever or chills. - Gastrointestinal: Denies nausea, vomiting, blood in stool, constipation, or diarrhea. - Psychiatric: Denies anxiety, depression, suicidal ideation, or homicidal ideation. Physical Exam General: Cooperative, healthy appearing, comfortable, no acute distress and well developed Orientation: Patient oriented x3 Limitations: No limitations Head: Normal to inspection Ears: Hearing grossly normal bilaterally Nose: Normal external nose present Face and sinus: Normal facial exam Eyes: Appearance normal, both eyes and all related structures Neck: Normal visual inspection and Yes full ROM Respiratory: Normal respiratory effort and able to speak in complete sentences. Clear to auscultation bilaterally Cardiovascular: Regular rate and rhythm. Normal S1 and S2 GI: Normal to inspection. Soft to palpation and nontender Skin: No rashes or lesions noted Neuro: Patient oriented x3 Extremities: Normal to inspection Results Plan I evaluated the postoperative status of the patient who had sigmoid resection for adenocarcinoma of the colon. He is progressing well and continues with routine follow-ups coordinated by his surgical and oncology care teams. He was advised to persist with these follow-ups for ongoing assessment. In addition, we discussed the necessary steps for completing the health service coordinator paperwork to support his role. Discussion Notes I reviewed with the patient his current status post-sigmoid resection for adenocarcinoma of the colon. We discussed his postoperative journey, including the positive aspects of his recovery and the absence of complications or symptoms. I reiterated the importance of continued follow-up imaging and laboratory assessments conducted by his surgical and oncology teams to monitor for disease recurrence. We also discussed his role as a health service coordinator and the necessity of completing the related paperwork. He expressed a positive outlook and readiness to fulfill these requirements. Patient Instructions - Continue with scheduled follow-ups with your oncology and surgical teams as advised. - Maintain awareness for any new symptoms and report them promptly. - Complete and submit the necessary paperwork for your health service coordinator responsibilities. [facility] Medical History History of colon cancer Colon cancer HTN (hypertension) Back pain Dyslipidemia Thrombosed external hemorrhoids Surgical History Hx of surgical procedure (~04/25/24) History of flexible sigmoidoscopy Hx of colonoscopy H/O wisdom tooth extraction History of incision and drainage (12/23/22) Family History Paternal Grandmother Bladder cancer Maternal Grandmother Liver transplant disorder Social History Household Members: Family Housing: House Are you a primary career professional to a significant other at home: No Do you presently have visiting nurse or other home services: No Alcohol intake: current Alcohol intake frequency: does not drink Patient Tobacco Use Status: Former Tobacco user e-Cigarette/Vaping Use: Never Used Second Hand Smoke Exposure: No Substance Use Type: Marijuana service: No Current occupational status: employed Current occupation: [employer] Current occupational exposures/hazards: Yes Cognitive needs: No Hearing needs: No Vision needs: No Questionnaire PHQ-9 Over the last 2 weeks, how often have you been bothered by any of the following problems? 1. Little interest or pleasure in doing things: not at all 2. Feeling down, depressed, or hopeless: not at all 3. Trouble falling or staying asleep, or sleeping too much: not at all 4. Feeling tired or having little energy: not at all 5. Poor appetite or overeating: not at all 6. Feeling bad about yourself - or that you are a failure or have let yourself or your family down: not at all 7. Trouble concentrating on things, such as reading the newspaper or watching television: not at all 8. Moving or speaking so slowly that other people could have noticed. Or the opposite - being so fidgety or restless that you have been moving around a lot more than usual: not at all 9. Thoughts that you would be better off or of hurting yourself in some way: not at all Total score: 0 Depression Screening Interpretation: Negative Depression Screening Done: Yes 99454 - PHQ-9 Billing: Yes Source: Developed by Drs. Bo Burns, Valerie Julio, Luis Hood and colleagues, with an educational speedy from [employer]. Thrive Questionnaire Date Thrive assessed: 12/17/24 I am a: Patient What is your living situation today?: I have a steady place to live Within the past 12 months, did the food you bought not last and you didn't have the money to get more?: I choose not to answer this question Within the past 12 months, did you worry whether your food would run out before you got money to buy more?: I choose not to answer this question Do you have trouble paying for medicines?: I choose not to answer this question Do you have trouble getting transportation to medical appointments?: I choose not to answer this question Do you have trouble paying your heating and electricity bill?: I choose not to answer this question Do you have trouble taking care of your child, family member or friend?: I choose not to answer this question Do you have trouble with day-to-day activities such as bathing, preparing meals, shopping, managing finances, etc.?: I choose not to answer this question Are you currently unemployed and looking for a job?: I choose not to answer this question Are you interested in more education?: I choose not to answer this question Please select the resources that you would like help with: None Currently or been in a relationship where the following occur: I choose not to answer THRIVE Score: 0 AUDIT C Alcohol Use Questionnaire (AUDIT-C) 1. How often do you have a drink containing alcohol?: Never Total Score: 0 VANDANA-7 AMB Questionnaire VANDANA-7 Date VANDANA - 7 assessed: 12/17/24 Feeling nervous, anxious, or on edge: 0 = Not at all Not being able to stop or control worryin = Not at all Worrying too much about different things: 0 = Not at all Trouble relaxin = Not at all Being so restless that it is hard to sit still: 0 = Not at all Becoming easily annoyed or irritable: 0 = Not at all Feeling afraid as if something awful might happen: 0 = Not at all Total VANDANA-7 score (0-4 normal; 5-9 mild; 10-14 moderate; 15-21 severe): 0 Source: Developed by Drs. Bo Burns, Valerie Julio, Luis Hood and colleagues, with an educational speedy from [employer]. Physical exam (Primary Care) Vital Signs: Last Vital Signs Temp 98.0 F 12/17/24 07:52 Pulse 83 12/17/24 07:52 Resp 16 12/17/24 07:52 BP 126/66 12/17/24 07:52 Pulse Ox 98 12/17/24 07:52 Oxygen Delivery Method Room Air 12/17/24 07:52 BMI result Body Mass Index 31.2 Tobacco/Smoking Status: Tobacco use Status Tobacco use date assessed 12/17/24 12/17/24 07:59 Patient Tobacco Use Status Former Tobacco user 12/17/24 07:57 e-Cigarette/Vaping Use Never Used 12/17/24 07:57 PHQ-9: PHQ-9 Score PHQ-9: Total score 0 12/17/24 07:59 Depression Screening Interpretation: Negative Thrive Assessment: Date of Thrive Assessment Date Thrive assessed 12/17/24 12/17/24 07:59 Currently or been in a relationship where the following occur: I choose not to answer Coding Level of Care Code Est Pt Prev Care 40-64y(18875) Diagnoses Physical exam Z00.00 Screening for prostate cancer Z12.5 History of colon cancer Z85.038 Additional Codes PHQ-9 - 68531 - PHQ-9 Billing: Yes ([id number]) Assessment & Plan Assessment & Plan (1) Physical exam: Code(s): Z00.00 - Encounter for general adult medical examination without abnormal findings Category: Medical (2) Screening for prostate cancer: Code(s): Z12.5 - Encounter for screening for malignant neoplasm of prostate Category: Medical (3) History of colon cancer: Code(s): Z85.038 - Personal history of other malignant neoplasm of large intestine Category: Medical Plan . Orders: Orders Comprehensive Arnot. Panel Fast Today Z00.00 - Encounter for general adult medical examination without abnormal findings Prostate Specific Antigen Scr Today Z12.5 - Encounter for screening for malignant neoplasm of prostate TDaP Immunization Today Z23 - Encounter for immunization Complete Blood Count Auto Diff Today Z00.00 - Encounter for general adult medical examination without abnormal findings TSH reflex Free T4 Today Z00.00 - Encounter for general adult medical examination without abnormal findings UA CC w/rflx Micro + Cult Today Z00.00 - Encounter for general adult medical examination without abnormal findings Lipid Panel Today Z00.00 - Encounter for general adult medical examination without abnormal findings Medications: New Boostrix Tdap (diphth,pertus(acell),tetanus) 0.5 mL IM ONCE 0.5 mL 0RF NS Z23 - Encounter for immunization
--- OUTSIDE RECORDS SUMMARY | 2024-12-17 07:52 | XMS_ITS | Continuity of Care Document ---
Author Organization [facility]. If a dditional information is needed, contact Health Information Management at [phone] Address [address] [place] [address] Phone Care Team Providers Care Solar Sales Specialist Name Role Phone Unavailable Unavailable Unavailable Unavailable Unavailable Unavailable Unavailable Unavailable Unavailable Problems Cellulitis and abscess of fa ce Onset:07-Jun-2021 Kavita Olivier DO Allergies and Adverse Reactions shellfish derived(Allergy) Onset: 07-Jun-2021 Social History Smoking Status Never smoked tobacco Recorded: 07-Jun-2021
== END 2024-12-17 08:39 | disposition home or self-care (01) ==
PROVIDERS: PCP Nurse Practitioner Family; Visit Provider Nurse Practitioner Family
DX: Z00.00 Encounter for general adult medical examination without abnormal findings (principal); Z12.5 Encounter for screening for malignant neoplasm of prostate; Z85.038 Personal history of other malignant neoplasm of large intestine; Z23 Encounter for immunization

== ENCOUNTER → 2024-12-17 07:49 | Outpatient (BNVA) | payer BC, SELFPAY | PROVIDERS: PCP Nurse Practitioner Family; Visit Provider Nurse Practitioner Family | DX: Z00.00 Encounter for general adult medical examination without abnormal findings (principal); Z23 Encounter for immunization; Z85.038 Personal history of other malignant neoplasm of large intestine | CPT/HCPCS: 90471; 90715; 96127 ==

== ENCOUNTER 2025-02-18 13:09 | Outpatient (REF) | payer BC, SELFPAY ==
--- NOTE | ~2025-02-18 | CT_ITS ---
CLINICAL HISTORY: RESTAGING FOR COLON CANCER CT chest with IV contrast. COMPARISON: None FINDINGS: Visualized thyroid is unremarkable. No supraclavicular or axillary lymphadenopathy. Normal chest wall. Ascending aorta and main pulmonary artery are normal in caliber. No pericardial effusion. Normal esophagus. No mediastinal or hilar lymphadenopathy. No pleural effusion. No consolidation. Trachea and central airways are clear. No significant bronchial wall thickening. No bronchiectasis. No pulmonary nodule. Visualized portions of the upper abdomen are unremarkable. No acute fracture or suspicious osseous abnormality. IMPRESSION: 1. No acute intrathoracic findings. No evidence of metastatic disease. This document has been electronically signed by: Garland Guy MD on 02/19/2025 13:47:35
--- NOTE | ~2025-02-18 | CT_ITS ---
CLINICAL HISTORY: FOLLOW-UP FOR COLON CANCER CT abdomen and pelvis with IV contrast. COMPARISON: CT abdomen and pelvis dated 09/04/24 at 14:48 EST FINDINGS: Partially visualized lung bases are unremarkable. No focal hepatic lesion. Gallbladder is contracted. Normal spleen. Normal pancreas. Normal adrenal glands. Symmetric renal enhancement. No hydronephrosis. Small extrarenal pelves present bilaterally. Normal appendix. Moderate colonic stool burden. No bowel obstruction. Suture material present along the distal sigmoid colon. No focal colonic wall thickening identified. No mesenteric or retroperitoneal lymphadenopathy. Normal abdominal aorta. Surgical clips present along the pelvic brim at midline. Normal appearance of the urinary bladder. Prostate calcifications present. Similar appearance of multiple normal-sized inguinal lymph nodes. No pelvic lymphadenopathy. Mild lower lumbar spondylosis. No acute fracture. Similar appearance of sclerotic focus along the right iliac bone measuring 2.0 cm, stable when remeasured in similar fashion. Scarring along the anterior abdominal wall from midline incision. No organizing fluid collection. IMPRESSION: 1. Stable postsurgical changes along the distal sigmoid colon. No evidence of metastatic disease. No lymphadenopathy. 2. Stable sclerotic focus within the right iliac bone. This document has been electronically signed by: Garland Guy MD on 02/19/2025 14:04:40
[2025-02-18] MEDS: iohexoL 350 MG/ML 100 ML INFUS..BTL IV (13:42)
--- OUTSIDE RECORDS SUMMARY | 2025-02-18 14:22 | XMS_ITS | Continuity of Care Document ---
Author Organization [facility]. If a dditional information is needed, contact Health Information Management at [phone] Address [address] [place] [address] Phone Care Team Providers Care Pipe Inspector Name Role Phone Unavailable Unavailable Unavailable Unavailable Unavailable Unavailable Unavailable Unavailable Unavailable Problems Cellulitis and abscess of fa ce Onset:07-Jun-2021 Kavita Olivier DO Allergies and Adverse Reactions shellfish derived(Allergy) Onset: 07-Jun-2021 Social History Smoking Status Never smoked tobacco Recorded: 07-Jun-2021
== END 2025-02-18 13:10 | disposition home or self-care (01) ==
LOC: HO.CT 13:09
PROVIDERS: PCP Nurse Practitioner Family; Visit Provider Internal Medicine Medical Oncology
DX: Z85.038 Personal history of other malignant neoplasm of large intestine (principal); Z92.21 Personal history of antineoplastic chemotherapy; Z98.890 Other specified postprocedural states
CPT/HCPCS: 71260; 74177; Q9967

== ENCOUNTER → 2025-02-18 13:11 | Outpatient (BNV) | payer BC, SELFPAY | PROVIDERS: PCP Nurse Practitioner Family; Visit Provider Radiology Diagnostic Radiology | DX: C18.9 Malignant neoplasm of colon, unspecified (principal) | CPT/HCPCS: 71260; 74177 ==

== ENCOUNTER 2025-03-18 06:54 | Day surgery (SDC) | payer BC, SELFPAY ==
--- OUTSIDE RECORDS SUMMARY | 2025-02-11 07:32 | XMS_ITS | Continuity of Care Document ---
Author Organization [facility]. If a dditional information is needed, contact Health Information Management at [phone] Address [address] [place] [address] Phone Care Team Providers Care Sort Operations Supervisor Name Role Phone Unavailable Unavailable Unavailable Unavailable Unavailable Unavailable Unavailable Unavailable Unavailable Problems Cellulitis and abscess of fa ce Onset:07-Jun-2021 Kavita Olivier DO Allergies and Adverse Reactions shellfish derived(Allergy) Onset: 07-Jun-2021 Social History Smoking Status Never smoked tobacco Recorded: 07-Jun-2021
--- NOTE | 2025-03-17 09:45 | P.CONAN_ITS ---
Documented by User: Joanie Stephen NP 03/17/25 09:45 HPI - Anesthesia Eval Consult details Narrative: 39yo M for Colonoscopy PMFSH Active Problems Active Problems: All Active Problems Screening for prostate cancer (Acute) History of colon cancer (Acute) Colon cancer (Acute) HTN (hypertension) (Acute) Abnormal bowel habits (Acute) Past Medical History Medical History History of colon cancer Colon cancer HTN (hypertension) Back pain Dyslipidemia Thrombosed external hemorrhoids Family History Family History Paternal Grandmother Bladder cancer Maternal Grandmother Liver transplant disorder Family history of problems with anesthesia: No Surgical History Surgical History Hx of surgical procedure (~04/25/24) History of flexible sigmoidoscopy Hx of colonoscopy H/O wisdom tooth extraction History of incision and drainage (12/23/22) History of Problems with Anesthesia: No Social History Social History Household Members: Family Housing: House Are you a primary healthcare translator to a significant other at home: No Do you presently have visiting nurse or other home services: No Alcohol intake: current Alcohol intake frequency: does not drink Patient Tobacco Use Status: Former Tobacco user e-Cigarette/Vaping Use: Never Used Second Hand Smoke Exposure: No Use of substances other than those prescribed or required for medical reasons: Yes Substance Use Type: Marijuana Substance Use Frequency: Occasionally Have you been hit, kicked, punched, or otherwise hurt by someone within the past year? If so, by whom?: No Are you DNR?: No Advance Directives: No Advance Directives Information Provided: Yes Advance Directives on File: No Poor oral hygiene: No service: No Current occupational status: employed Current occupation: [employer] Current occupational exposures/hazards: Yes Cognitive needs: No Hearing needs: No Vision needs: No Meds Allergies Allergy/AdvReac Type Severity Reaction Status Date / Time shellfish Allergy Mild hives Uncoded 01/20/25 09:28 Assessment and Plan Assessment Anesthesia Assessment: Chart Reviewed Final Anesthetic Review Family History of Problems with Anesthesia: No History of Problems with Anesthesia: No Documented by User: Pato Patel MD 03/18/25 07:36 PMFSH Past Medical History Medical History History of colon cancer Colon cancer HTN (hypertension) Back pain Dyslipidemia Thrombosed external hemorrhoids Functional capacity: independent ambulation Family History Family History Paternal Grandmother Bladder cancer Maternal Grandmother Liver transplant disorder Surgical History Surgical History Hx of surgical procedure (~04/25/24) History of flexible sigmoidoscopy Hx of colonoscopy H/O wisdom tooth extraction History of incision and drainage (12/23/22) Social History Social History Household Members: Family Housing: House Are you a primary healthcare translator to a significant other at home: No Do you presently have visiting nurse or other home services: No Alcohol intake: current Alcohol intake frequency: does not drink Patient Tobacco Use Status: Former Tobacco user e-Cigarette/Vaping Use: Never Used Second Hand Smoke Exposure: No Use of substances other than those prescribed or required for medical reasons: Yes Substance Use Type: Marijuana Substance Use Frequency: Occasionally Have you been hit, kicked, punched, or otherwise hurt by someone within the past year? If so, by whom?: No Are you DNR?: No Advance Directives: No Advance Directives Information Provided: Yes Advance Directives on File: No Poor oral hygiene: No service: No Current occupational status: employed Current occupation: [employer] Current occupational exposures/hazards: Yes Cognitive needs: No Hearing needs: No Vision needs: No Meds Allergies Allergy/AdvReac Type Severity Reaction Status Date / Time shellfish Allergy Mild hives Uncoded 04/07/25 09:28 Exam Exam Date and Time: Height,Weight and Vital Signs: 5foot8;205lbs Airway Mallampati Class: II TM Dist: >3cm Neck ROM: Full Heart: rrr Lungs: cta Assessment and Plan Final Anesthetic Review ASA Class: II Final Preanesthetic Review: No Changes in Pt Med Stat, Meds/Allgs Chart Reviewed and Consent Obtained/Reviewed Patient Risk: Low Procedure Risk: Low Anesthetic Plan Anesthetic Plan: MAC: Disposition: Standard PACU
[2025-03-18 07:09] VITALS: BMI 32.0
[2025-03-18 07:15] VITALS: BP 107/62; PULSE 55; RESP 16; TEMP 36.8; O2SAT 98
[2025-03-18] MEDS: Lactated Ringers 1,000 ML 100 ML IVCONT (07:20)
--- NOTE | 2025-03-18 07:39 | MHC.SHP ---
Pre-Procedural Eval Section A - 24 Hr Update-Section A only Date of Service: 03/18/25 Section B - Complete if H&P > 30 days Chief Complaint: Personal history of other malignant neoplasm Relevant Family History (Specify if Yes): No Relevant Social History: None Present Medications: see Short Stay Collaborative assessment Medical History: Significant History (History of colon cancer Colon cancer HTN (hypertension) Back pain Dyslipidemia Thrombosed external hemorrhoids) History of Previous Operations: Relevant previous surgery/procedure and date(s) (Hx of surgical procedure (~04/25/24) History of flexible sigmoidoscopy Hx of colonoscopy H/O wisdom tooth extraction History of incision and drainage (12/23/22)) Allergies: Allergies Allergy/AdvReac Type Severity Reaction Status Date / Time shellfish Allergy Mild hives Uncoded 01/20/25 09:28 Review of Systems Sugical H&P ROS: Negative: Constitution, Cardiovascular, Respiratory, Neurological, Psychiatric, Hem-Onc, Allergic/Immunologic, Gastrointestinal, Genitourinary, Musculoskeletal, Integumentary, Endocrine and Eyes/Ears/Nose/Throat Exam Surgical H&P Exam: Normal: HEENT, Normal: Heart, Normal: Lungs, Normal: Extremities, Normal: Abdomen, Normal: Skin and Normal: Neurological Plan Diagnosis/Plan: Unchanged I have reviewed the history and physical and performed a pertinent physical examination on my patient. No changes have occurred unless specified. Time Spent With Patient Time: Total time managing care of this patient today ____ minutes.
--- NOTE | 2025-03-18 08:15 | P.OPN-COLO_ITS ---
Colonoscopy Operative Note Operative Note Date of Service: 03/18/25 Narrative: Operative Information Procedure Description: Colonoscopy Indication: hx of colon cancer, surveillance Anesthesia: MAC COLONOSCOPY Instrument: Olympus variable stiffness pediatric scope 190L Colonoscopy Monitoring: Vital signs and clinical assessment, continuous EKG monitoring, Pulse oximetry, Carbon Dioxide monitoring and blood pressure monitoring were done throughout the procedure. Colon withdrawal time was 14 minutes. Procedure: The patient was placed in the left lateral decubitis position and pre-procedure medications were administered. After a digital rectal examination of the ano-rectum, the video colonoscope was inserted into the rectum and advanced through the colon to the cecum/TI. The colonoscope was slowly withdrawn in a retrograde panoramic fashion and the colon mucosa was carefully examined including a retroflexed view of the rectum. Findings and interventions are described below. Procedure Difficulty: easy Findings: Terminal Ileum-normal Cecum:normal right sided retroflexion- normal Ascending Colon: normal Transverse Colon -normal Descending Colon:normal Sigmoid Colon: normal Rectum: Retroflexion with small internal hemorrhoids seen, grade I, colo rectal anasotmosis noted, granular tissue maybe normal bx taken, there were retained jarrod which were removed due to suspected secondary inflammation from these Anorectum - normal Intervention: removal of jarrod, biopsies Colon preparation: [place] Bowel Preparation Scale Right colon; 2 Transverse colon: 2 Left colon; 2 (0 = Unprepared colon segment with mucosa not seen due to solid stool that cannot be cleared. 1 = Portion of mucosa of the colon segment seen, but other areas of the colon segment not well seen due to staining, residual stool and/or opaque liquid. 2 = Minor amount of residual staining, small fragments of stool and/or opaque liquid, but mucosa of colon segment seen well. 3 = Entire mucosa of colon segment seen well with no residual staining, small fragments of stool or opaque liquid) Impression and Post Procedure Diagnosis: internal hemorrhoids Plan: High fiber diet leaflet Avoid straining at stool, epsom salts and sitz bath, anusol supps or cream Repeat Colonoscopy in 2-3 years due to hx of CRC or earlier if clinically indicated await bx results Above findings were reviewed with the patient and relevant handouts were provided if indicated.
[2025-03-18 08:16] VITALS: BP 110/75; PULSE 69; RESP 18; TEMP 36.2; O2SAT 100
[2025-03-18 08:21] VITALS: BP 88/39; PULSE 48; RESP 18; O2SAT 96
[2025-03-18 08:26] VITALS: BP 94/41; PULSE 47; RESP 18; O2SAT 95
[2025-03-18 08:31] VITALS: BP 91/42; PULSE 45; RESP 18; O2SAT 98
[2025-03-18 08:43] VITALS: BP 100/53; PULSE 53; RESP 18; TEMP 36.8; O2SAT 99
== END 2025-03-18 09:02 | disposition home or self-care (01) ==
PROVIDERS: PCP Nurse Practitioner Family; Visit Provider Internal Medicine Gastroenterology
PROC: 0DJD8ZZ Inspection of Lower Intestinal Tract, Via Natural or Artificial Opening Endoscopic (ICD-10-PCS; CPT 45378; principal; 2025-03-18 08:30)
DX: Z12.11 Encounter for screening for malignant neoplasm of colon (principal); Z85.038 Personal history of other malignant neoplasm of large intestine; K64.0 First degree hemorrhoids; Z90.49 Acquired absence of other specified parts of digestive tract; Z98.0 Intestinal bypass and anastomosis status; Z87.891 Personal history of nicotine dependence
CPT/HCPCS: 45380; 15851; 88305; J2003; J2704; J3010

== ENCOUNTER → 2025-03-18 06:54 | Outpatient (BNV) | payer BC, SELFPAY | PROVIDERS: PCP Nurse Practitioner Family; Visit Provider Internal Medicine Gastroenterology | DX: Z12.11 Encounter for screening for malignant neoplasm of colon (principal); Z85.038 Personal history of other malignant neoplasm of large intestine; K64.0 First degree hemorrhoids | CPT/HCPCS: 45380 ==

== ENCOUNTER 2025-05-22 08:54 | Outpatient (AMB) | payer BC, SELFPAY ==
--- NOTE | 2025-05-22 09:05 | A.OFFVIS_ITS ---
Intake Visit Reasons: anterion resection, stoma Intake Note: Patient here s/p Hand assisted laparoscopic anterior resection of the rectosigmoid, mesorectal excision with end-to-end anastomosis, intraop flexible sigmoidoscopy. Patient c/o: no concerns. Reports incisions healing. No longer taking rx pain meds. Surgery: 04-25-2025 Colonoscopy (Dr. 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 He had adjuvant chemotherapy which he completed last August,. He admits to cold intolerance since that time. He is doing well currently. He denies any GI complaints. He had a colonoscopy in March [address] Weston and this was unremarkable He had a CAT scan done as well for a six-month surveillance and this was unremarkable. His CEA level has remained low. He says he feels well overall and remains active. [facility] Medical History History of colon cancer Colon cancer HTN (hypertension) Back pain Dyslipidemia Thrombosed external hemorrhoids Surgical History Hx of surgical procedure (~04/25/24) History of flexible sigmoidoscopy Hx of colonoscopy H/O wisdom tooth extraction History of incision and drainage (12/23/22) Family History Paternal Grandmother Bladder cancer Maternal Grandmother Liver transplant disorder Social History Household Members: Family Housing: House Are you a primary manager medicare to a significant other at home: No Do you presently have visiting nurse or other home services: No Alcohol intake: current Alcohol intake frequency: does not drink Patient Tobacco Use Status: Former Tobacco user e-Cigarette/Vaping Use: Never Used Second Hand Smoke Exposure: No Substance Use Type: Marijuana service: No Current occupational status: employed Current occupation: [employer] Current occupational exposures/hazards: Yes Cognitive needs: No Hearing needs: No Vision needs: No Review of Systems Const Denies chills and Denies fever(s) Card Denies chest pain, Denies dyspnea and Denies dyspnea on exertion Resp Denies cough, Denies dyspnea and Denies dyspnea on exertion GI Denies hematochezia and Denies change in bowel habits Denies hematuria and Denies difficulty urinating Musc Denies back pain and Denies limited range of motion Neuro Denies focal weakness and Denies convulsions Psych Denies depression and Denies mood swings Physical Exam Const General: comfortable and no acute distress Orientation/consciousness: patient oriented x3 Neck Neck: Yes no lymphadenopathy Resp Auscultation: clear to auscultation bilaterally Cardio Rhythm: regular rhythm GI Palpation (GI): Soft to palpation, nontender and no guarding Neuro General: patient oriented x3 Assessment & Plan Assessment & Plan (1) Colon cancer: Comment: Patient is being followed by Gastroenterology, General surgery, Hematology- Oncology. Code(s): C18.9 - Malignant neoplasm of colon, unspecified Category: Medical Qualifiers: Colon location: unspecified part of colon Qualified Code(s): C18.9 - Malignant neoplasm of colon, unspecified Plan: He is doing very well after resection for a T3 N0 sigmoid adenocarcinoma last April,. His surveillance CAT scan and colonoscopy as well as CEA levels have been good. I reminded him to continue to follow up with Dr. Medina. He CEA level should be followed every 6 months. I will see him in the office again in about 1 year. Coding Level of Care Code Est Pt Level 3 (32184) Diagnoses Malignant neoplasm of colon, unspecified part of colon C18.9 Colon location: unspecified part of colon
--- OUTSIDE RECORDS SUMMARY | 2025-05-22 09:14 | XMS_ITS | Continuity of Care Document ---
Author Organization [facility]. If a dditional information is needed, contact Health Information Management at [phone] Address [address] [place] [address] Phone Care Team Providers Care [employer] Technician Name Role Phone Unavailable Unavailable Unavailable Unavailable Unavailable Unavailable Unavailable Unavailable Unavailable Problems Cellulitis and abscess of fa ce Onset:07-Jun-2021 Kavita Olivier DO Allergies and Adverse Reactions shellfish derived(Allergy) Onset: 07-Jun-2021 Social History Smoking Status Never smoked tobacco Recorded: 07-Jun-2021
== END 2025-05-22 09:24 | disposition home or self-care (01) ==
LOC: HO.HGS 08:55
PROVIDERS: PCP Nurse Practitioner Family; Visit Provider Surgery
DX: C18.9 Malignant neoplasm of colon, unspecified (principal)
CPT/HCPCS: 99213

== ENCOUNTER 2025-06-25 06:08 | Outpatient (REF) | payer BC, SELFPAY ==
[2025-06-25 10:26] LABS: Appearance Urine Clear; Glucose Urine UA Negative (Negative); PH 6.5 (5.0-9.0); Specific Gravity - Urine <= 1.005 (1.005-1.025)
[2025-06-25 10:47] LABS: MANUAL DIFF FLAG NO
[2025-06-25 10:57] LABS: Hematocrit 45.6 % (42.0-52.0); Hemoglobin 16.3 g/dl (14.0-18.0); Imm Gran Abs Auto 0.01 X10*3/uL (0.00-0.03); Imm Gran Pct Auto 0.2 % (0.0-0.4); Lymphocytes Absolute Auto 2.3 X10*3/uL (1.2-4.9); Mean Corpuscular HGB Conc 35.7 g/dl (31.0-36.0); Mean Corpuscular Hemoglobin 32.0 pg (27.0-33.0); Mean Corpuscular Volume 89.4 fL (80.0-98.0); NRBC Abs Auto 0.000 X10*3/uL (0.0-0.012); NRBC Pct Auto 0.0 /100WBC (0.0-0.2); Platelet Count 262 X10*3/uL (160-400); Red Blood Count 5.10 X10*6/uL (4.60-5.80); White Blood Count 5.3 X10*3/uL (4.8-10.8)
[2025-06-25 11:34] LABS: Alanine Aminotransferase 30 U/L (0-40); Albumin Level 4.8 g/dL (3.5-5.0); Alkaline Phosphatase 42 U/L (39-117); Anion Gap 11 (12-20); Aspartate Amino Transferase 28 U/L (5-37); Blood Urea Nitrogen 12 mg/dL (9-16); Calcium 9.4 mg/dL (8.4-10.2); Carbon Dioxide 27 mmol/L (22-29); Chloride 107 mmol/L (96-108); Cholesterol 150 mg/dL (<200); Estimated Glomerular Filt Rate > 60; HDL Cholesterol 46 mg/dL (>40); Potassium 3.9 mmol/L (3.3-5.1); Sodium 141 mmol/L (135-145); Total Protein 6.9 g/dL (6.5-8.0); Triglycerides 97 mg/dL (<150)
== END 2025-06-25 06:09 | disposition home or self-care (01) ==
LOC: HO.HMGCLDS 06:08
PROVIDERS: PCP Nurse Practitioner Family; Visit Provider Nurse Practitioner Family
DX: Z00.00 Encounter for general adult medical examination without abnormal findings (principal); Z12.5 Encounter for screening for malignant neoplasm of prostate; Z13.6 Encounter for screening for cardiovascular disorders; Z13.29 Encounter for screening for other suspected endocrine disorder; Z13.0 Encounter for screening for diseases of the blood and blood-forming organs and certain disorders involving the immune mechanism
CPT/HCPCS: 36415; 80053; 80061; 81003; 84153; 84443; 85025

== ENCOUNTER 2025-09-17 06:47 | Outpatient (REF) | payer BC, SELFPAY ==
--- NOTE | ~2025-09-17 | CT_ITS ---
EXAMINATION: CT ABDOMEN PELVIS WITH IV CONTRAST HISTORY: Follow-up on colon cancer. COMPARISON: Comparison is made with the prior examination dated 02/18/2025. TECHNIQUE: CT scan of the abdomen and pelvis was performed following administration of 85 mL Omnipaque 350 using standard departmental protocol. Coronal and sagittal reformatted images were generated and reviewed. The patient received oral contrast material. This CT exam was performed with one or more of the following dose reduction techniques: automated exposure control, adjustment of the mA and/or kV according to patient size, use of iterative reconstruction technique. DLP: 733 mGy-cm FINDINGS: LOWER CHEST: The visualized lung bases are clear. There is no pleural effusion. CARDIOVASCULATURE: The heart is normal in size. There is no pericardial effusion. LIVER: The liver is normal in size and contour. No liver mass is identified. The hepatic and portal veins are patent. GALLBLADDER / BILE DUCTS: The gallbladder is unremarkable. There is no intra or extrahepatic biliary ductal dilatation. SPLEEN: The spleen is normal in size. No focal splenic lesion is identified. PANCREAS: The pancreas is unremarkable in appearance. ADRENAL GLANDS: Within normal limits. KIDNEYS/RETROPERITONEUM: No renal calculi are identified. There is no hydronephrosis. No renal masses are identified. LYMPH NODES: No abdominal or pelvic lymphadenopathy. VASCULATURE: The abdominal aorta is normal in caliber. MESENTERY/PERITONEUM: No free fluid. No masses. There is no free intraperitoneal gas. STOMACH: The stomach is unremarkable. SMALL BOWEL: The small bowel is normal in caliber. COLON: A rectosigmoid anastomosis is again noted. The colon is otherwise unremarkable. APPENDIX: Normal. URINARY BLADDER/PELVIC ORGANS: The urinary bladder is collapsed, limiting evaluation. The prostate is normal in size. BONES / SOFT TISSUES: Again seen is a sclerotic focus in the right iliac wing without change. CT/CT abdomen pelvis w IV con IMPRESSION: No evidence of recurrent or metastatic disease. Electronically signed by: Bo Yen MD 09/17/2025 09:40 AM [facility]
--- NOTE | ~2025-09-17 | CT_ITS ---
EXAMINATION: CT CHEST WITH CONTRAST CLINICAL INFORMATION: Follow up pulmonary nodules COMPARISON: CT chest 02/18/2025 TECHNIQUE: Multidetector volumetric CT imaging of the chest was obtained after the administration of 50 mL of Omnipaque 350 intravenous contrast without immediate adverse reactions. Axial MIP volume rendering provided. Sagittal and coronal reformatted images were obtained. This CT examination was performed using dose optimization techniques as appropriate, variously including the following: *Automated exposure control *Adjustment of mA and/or kV according to patient size (this includes techniques or standardized protocols for targeted exams where dose is matched to indication/reason for exam; i.e. extremities or head) *Use of iterative reconstruction technique FINDINGS: LUNGS: Trachea and central airway are patent. No significant bronchial wall thickening. No focal consolidation. No significant pulmonary nodules identified. MEDIASTINUM: Visualized thyroid gland is unremarkable. No bulky adenopathy in the mediastinum or edie. Normal heart size. No pericardial effusion. Ascending aorta and main pulmonary artery caliber is within normal limits. Nondistended esophagus.. PLEURA: There is no pleural effusion. No pleural mass or thickening. AXILLA: No lymphadenopathy. UPPER ABDOMEN: Liver attenuation suggesting hepatic steatosis. OSSEOUS STRUCTURES: No acute or suspicious osseous abnormality. CT/CT chest w IV con IMPRESSION: No evidence of metastatic disease. No acute intrathoracic findings. Fleischner guidelines were followed. Electronically signed by: Francisco Morel MD 09/17/2025 10:39 AM [facility]
[2025-09-17] MEDS: Barium Sulfate Oral (Vanilla) 450 ML ORAL.SUSP 900 ML PO (09:29)
[2025-09-17] MEDS: iohexoL 350 MG/ML 100 ML INFUS..BTL IV (09:29)
== END 2025-09-17 06:48 | disposition home or self-care (01) ==
LOC: HO.CT 06:47
PROVIDERS: PCP Nurse Practitioner Family; Visit Provider Internal Medicine Medical Oncology
DX: Z85.038 Personal history of other malignant neoplasm of large intestine (principal); R91.8 Other nonspecific abnormal finding of lung field
CPT/HCPCS: 71260; 74177; Q9967

== ENCOUNTER → 2025-09-17 06:50 | Outpatient (BNV) | payer BC, SELFPAY | PROVIDERS: PCP Nurse Practitioner Family; Visit Provider Radiology Diagnostic Radiology | DX: C18.9 Malignant neoplasm of colon, unspecified (principal); R91.8 Other nonspecific abnormal finding of lung field | CPT/HCPCS: 71260; 74177 ==